=== PATIENT | female | born 1935 | race Asian ===

== ENCOUNTER 2017-08-20 01:18 | Inpatient (IN) | payer MEDICARE, OTHER ==
--- NOTE | 2017-08-20 01:30 | ED Physician Chart ---
ED Chief Complaint/HPI - Patient Information Date Seen:: 08/20/17 Time Seen:: 01:20 Chief Complaint:: Wound Drainage History of Present Illness:: onset x one day of abdominal wound drainage; no report of trauma, H/As, neck pain, C/P, SOB, Abd. pain, A/N/V/D/C, fever, chills, or urinary s/s Historian:: Patient, EMS Review:: Nurse's Note Reviewed, EMS run form Reviewed, Transfer documents Reviewed ED Review of Systems - Review of Systems General/Constitutional: No fever, No chills, No weight loss, No weakness, No diaphoresis, No edema, No loss of appetite Skin: No skin lesions, No rash, No bruising Head: No headache, No light-headedness Eyes: No loss of vision, No pain, No diplopia ENT: No earache, No nasal drainage, No sore throat, No tinnitus Neck: No neck pain, No swelling, No thyromegaly, No stiffness, No mass noted Cardio Vascular: No chest pain, No palpitations, No PND, No orthopnea, No edema Pulmonary: No SOB, No cough, No sputum, No wheezing GI: Nausea, Vomiting, No diarrhea, Pain, Melena, Hematochezia, No constipation, No hematemesis G/U: Dysuria, No frequency, No hematuria Guard Range: No vaginal discharge, No abnormal vaginal bleed, No contraction Musculoskeletal: No bone or joint pain, No back pain, No muscle pain Endocrine: Polyuria, Polydipsia Psychiatric: No prior psych history, No depression, No anxiety, No suicidal ideation, No homicidal ideation, No auditory hallucination, No visual hallucination Hematopoietic: No bruising, No lymphadenopathy Allergic/Immuno: No urticaria, No angioedema Neurological: No syncope, No focal symptoms, Weakness, No paresthesia, No headache, No seizure, No dizziness, Confusion, No vertigo ED Past Medical History - Past Medical History Obtainable: Yes Past Medical History: HTN, DM, CAD, Dyslipidemia, PUD/GERD, Other (Rectal Cancer ; Diverticulitis) Family History: Diabetes Melitus, HTN, Cancer Social History: Non Smoker, No Alcohol, No Drug Use, Single, Care Facility Surgical History: other (Abdominal Surgery) Psychiatricy History: None Medication: Reviewed Family Medical History - Family Member Mother History Unknown: Yes ED Physical Exam - Physical Examination General/Constitutional: Awake, Well-developed, well-nourished, Alert, No distress, GCS 15, Non-toxic appearing, Ambulatory Head: Atraumatic Eyes: Lids, conjuctiva normal, PERRL, EOMI Skin: No rash, No skin lesions, No ecchymosis, Well hydrated, No lymphadenopathy Other Skin comments:: + Cellulitis around Abdominal Wound with drainage ENMT: External ears, nose nl, Nasal exam nl, Lips, teeth, gums nl Neck: Nontender, Full ROM w/o pain, No JVD, No nuchal rigidity, No bruit, No mass, No stridor Respiratory: Nl effort/Exclusion, Clear to Auscultation, No Wheeze/Rhonchi/Rales Cardio Vascular: RRR, No murmur, gallop, rubs, NL S1 S2 GI: No tenderness/rebounding/guarding, No organomegaly, No hernia, Normal BS's, Nondistended, No mass/bruits, No McBurney tenderness : No CVA tenderness Extremities: No tenderness or effusion, Full ROM, normal strength in all extremities, No edema, Normal digits & nails Neuro/Psych: Alert/oriented, DTR's symmetric, Normal sensory exam, Normal motor strength, Judgement/insight normal, Mood normal, Normal gait, No focal deficits Misc: Normal back, No paraspinal tenderness ED Labs/Radiology/EKG Results - Lab Results Comments:: WBC: 12.9; Na+: 130 - Radiology Results Comments:: + Infiltrate - EKG Interpretations Rate & Rhythm: NSR Comments:: non-specific st-t changes ED Septic Shock - . Is Septic Shock (SBP<90, OR Lactate>4 mmol\L) present?: No ED Reassessment (Disposition) - Reassessment Reassessment Condition:: Improved - Diagnosis Diagnosis:: Dx: Wound Infection; Cellulitis; Hyponatremia; Dehydration; Sepsis - Aftercare/Follow up Instructions Aftercare/Follow-Up Instructions:: Counseled pt regarding lab results/diagnosis & need follow up, Counseled pt & family regarding lab results/diagnosis & need follow up - Patient Disposition Discharge/Transfer:: Acute Care w/in this hosp Accepting Physician:: Dr. Zamudio Time Called:: 214 Time Responded:: 02:15 Admitted to:: Telemetry Spoke to:: Dr. Zamudio Admitting Medical Physician:: Dr. Zamudio Condition at Disposition:: Stable, Improved ED Discharge Plan - Patient Disposition Admit/Discharge/Transfer: Acute Care w/in this hosp
[2017-08-20 02:15] LABS: % BASOPHILS 1.7 % (0.0-2.0); % EOSINOPHILS 3.9 % (0.0-5.0); % LYMPHOCYTES 10.4 % (20.0-50.0); % MONOCYTES 7.2 % (2.0-10.0); % NEUTROPHILS 76.8 % (40.0-80.0); HEMATOCRIT 37.8 % (41.0-60); HEMOGLOBIN 12.9 gm/dL (12-16); MEAN CORPUSCULAR HEMOGLOBIN 31.8 pg (27.0-31.0); MEAN CORPUSCULAR HGB CONC 34.2 pg (28.0-36.0); MEAN PLATELET VOLUME 8.2 fl; PLATELET COUNT 305 Th/cmm (150-400); RED BLOOD COUNT 4.06 Mil/cmm (3.80-5.20); RED CELL DISTRIBUTION WIDTH 12.3 % (11.5-20.0)
[2017-08-20 02:17] LABS: WHITE BLOOD COUNT 12.9 Th/cmm (4.8-10.8)
[2017-08-20 02:25] LABS: PROTHROMBIN TIME (TEST) 10.4 SECONDS (9.5-11.5)
[2017-08-20 02:26] LABS: ALB/GLOB RATIO 0.8 (1.0-1.8); ALKALINE PHOSPHATASE 158 U/L (34-104); ANION GAP 11.1 (7.0-16.0); BILIRUBIN,TOTAL 0.7 mg/dL (0.3-1.0); BUN - UREA NITROGEN 12 mg/dL (7-25); CALCIUM SERUM 8.6 mg/dL (8.6-10.3); CARBON DIOXIDE 23.5 mEq/L (21.0-31.0); CHLORIDE 99 mEq/L (98-107); CHOLESTEROL 124 mg/dL (<200); CREATININE - SERUM 0.5 mg/dL (0.6-1.2); GLUCOSE 111 mg/dL (70-105); POTASSIUM SERUM 3.6 mEq/L (3.5-5.1); SGOT 14 U/L (13-39); SGPT/ALT 20 U/L (7-52); SODIUM SERUM 130 mEq/L (136-145); TRIGLYCERIDES 144 mg/dL (<150)
[2017-08-20] MEDS ORDERED: cefTRIAXone 1 GM in Sodium Chloride 0.9% 50 ML IV ONE (03:10)
[2017-08-20 04:32] VITALS: BP 120/62
[2017-08-20] MEDS ORDERED: Magnesium Hydroxide (MOM) 30 mL UDC PO PRN (07:17)
--- NOTE | 2017-08-20 07:40 | Diagnostic Imaging Report ---
CHEST X-RAY: AP view INDICATION: pain COMPARISON: None FINDINGS: Chronic lung changes are seen. There is mild elevation right hemidiaphragm. There is soft tissue prominence of right peritracheal region. No focal consolidation or effusions. Mild cardiomegaly is noted with atherosclerosis. Osseous structures are intact. IMPRESSION: No focal consolidation identified. Mild cardiomegaly with atherosclerosis. Soft tissue prominence of right paratracheal region probably related to body habitus and possible prominent vessels in this region. Lymphadenopathy would be considered less likely. Correlation with old chest x-rays would be helpful comparison. Alternatively short-term follow-up CT of the chest if indicated would provide additional detail and assessment.
--- NOTE | 2017-08-20 08:39 | History and Physical ---
History of Present Illness - HPI Chief Complaint: abdominal pain HPI: This is an 82 year old female who presents to [facility] ER for acute abdominal pain with a previous history of bowel resection at an outside facility. Patient has a history of neoplasm of the rectum. She presents to the ER with serosanginous drainage from her surgical site noted at the [facility]. She was transferred here for further evaluation and treatment. She denies any nausea,vomiting, diarrhea, constipation/fever/chills, or urinary symptoms. Vital Signs: Last Vital Signs Temp 97.3 F 08/20/17 04:00 Pulse 73 08/20/17 04:00 Resp 20 08/20/17 04:00 BP 120/62 08/20/17 04:31 Pulse Ox 94 08/20/17 04:00 Past Medical History Cardiovascular: Report: CAD, HTN, Hyperlipidemia GI: Report: GERD, Peptic Ulcer, Other (Neoplasm of the Rectum.) Musculoskeletal: Report: No Pertinent Hx Rheumatologic: Report: No pertinent Hx Infectious Disease: Report: No Pertinent Hx Renal/: Report: No Pertinent Hx Endocrine: Report: Diabetes Dermatology: Report: No Pertinent Hx (s/p bowel resection) - Past Surgical History Past Surgical History: Other Family Medical History - Family Member Mother History Unknown: Yes Social History Smoke: No Alcohol: None Drugs: None Lives: Alone - Medications Home Medications: Home Medication Medication Instructions Recorded Type Acetaminophen [Tylenol] 650 mg PO BID 08/20/17 History Amlodipine Besylate 5 mg PO DAILY 08/20/17 History Ascorbic Acid [Vitamin C] 500 mg PO DAILY 08/20/17 History Cholecalciferol (Vitamin D3) 800 unit PO DAILY 08/20/17 History [Vitamin D3] Docusate Sodium [Colace] 100 mg PO DAILY 08/20/17 History Folic Acid [Folate*] 1 mg PO DAILY 08/20/17 History Magnesium Hydroxide [Milk of 30 ml PO HS PRN 08/20/17 History Magnesia] Multivitamin with Minerals 1 tab PO DAILY 08/20/17 History [Multivitamins with Minerals] Zinc Sulfate [Zinc Sulfate 111 1 tab PO DAILY 08/20/17 History mg-50 mg] - Allergies Allergies/Adverse Reactions: Allergies Allergy/AdvReac Type Severity Reaction Status Date / Time No Known Allergies Allergy Verified 08/20/17 01:38 Review of Systems - Review of Systems Constitutional: Report: No Significant Eyes: Report: No Significant ENT: Report: No Significant Respiratory: Report: No Significant Cardiovascular: Report: No Significant Gastrointestinal: Report: Abdominal Pain Genitourinary: Report: No Significant Musculoskeletal: Report: No Significant Skin: Report: No Significant Neurological: Report: No Significant Physical Exam - Physical Exam HEENT: Report: Ears Nose Throat within normal limits, Pharnyx within normal limits Neck: Report: Within normal limits, Thyromegaly Cardiovascular Systems: Report: +s1/s2 noted, Regular, Rate and Rhythm Respiratory: Report: Breath Sounds are within normal limits, Clear to Auscultation of lung anthony Skin: Report: Skin Rash noted (presence of cellulitis.) Neuro/Psych: Report: Mood affect is within normal limits - Assessment Assessment: cellulitis abdominal pain s/p bowel resection malignant neoplasm of the rectum diverticulitis type 2 DM HTN history of colon polyps - Plan Plan: wound consult ID consult general surgery consult CBC,CMP tomorrow IV Rocephin
[2017-08-20] MEDS: Multivitamin w/ Minerals Tab PO SCH (08:45)
[2017-08-20] MEDS ORDERED: CHOLECALCIFEROL 800 UNIT PO SCH (09:00)
--- NOTE | 2017-08-20 11:18 | Consultation ---
Consult Note - Consult Note Service Date: 08/20/17 Referring Physician: Juan Wadsworth Consult Note: PHYSICIAN Consultation Note: Date of Admission: 08/20/17 Purpose of Consultation: Abdominal wall cellulitis. Chief Complaint: Patient ANDI ELIZONDO was admitted to location Medical[facility] Unit I with CELLULITIS. History of Present Illness: 82 year female with history of HTN, DM, CAD, Dyslipidemia, PUD/GERD, Colon Cancer; Diverticulitis had partial colectomy in 08/01/2017. Unfortunately, she developed abdominal pain and pus draining from middle part of the surgical incision wound, so she had been admitted for draining abdominal wall wound with abdominal pain of one day. There is no history of fever,, chills, diarrhea. On initial evaluation, her temperature was 98 degree F and WBC Count was 12,900. Rocephin was started and ID consult was called for antibiotic management. Past Medical History: HTN, DM, CAD, Dyslipidemia, PUD/GERD,Colon Cancer; Diverticulitis. Allergies Allergy/AdvReac Type Severity Reaction Status Date / Time No Known Allergies Allergy Verified 08/20/17 01:38 Vital Signs Temp 97.6 F 08/20/17 08:13 Pulse 81 08/20/17 08:45 Resp 17 08/20/17 08:13 BP 119/62 08/20/17 08:45 Pulse Ox 96 08/20/17 08:13 Intake & Output 08/19/17 08/20/17 08/20/17 18:59 06:59 18:59 Weight (lbs) 51.573 kg Home Medication Medication Instructions Recorded Type Acetaminophen [Tylenol] 650 mg PO BID 08/20/17 History Amlodipine Besylate 5 mg PO DAILY 08/20/17 History Ascorbic Acid [Vitamin C] 500 mg PO DAILY 08/20/17 History Cholecalciferol (Vitamin D3) 800 unit PO DAILY 08/20/17 History [Vitamin D3] Docusate Sodium [Colace] 100 mg PO DAILY 08/20/17 History Folic Acid [Folate*] 1 mg PO DAILY 08/20/17 History Magnesium Hydroxide [Milk of 30 ml PO HS PRN 08/20/17 History Magnesia] Multivitamin with Minerals 1 tab PO DAILY 08/20/17 History [Multivitamins with Minerals] Zinc Sulfate [Zinc Sulfate 111 1 tab PO DAILY 08/20/17 History mg-50 mg] Current Medications Generic Name Dose Route Start Last Admin Trade Name Giovani PRN Reason Stop Dose Admin Acetaminophen 650 mg 08/20/17 09:00 08/20/17 08:44 Tylenol PO 10/19/17 08:59 650 mg BID KARLENE Administration Amlodipine Besylate 5 mg 08/20/17 09:00 08/20/17 08:45 Norvasc PO 10/19/17 08:59 5 mg DAILY KARLENE Administration Ascorbic Acid 500 mg 08/20/17 09:00 08/20/17 08:45 Vitamin C PO 10/19/17 08:59 500 mg DAILY KARLENE Administration Docusate Sodium 100 mg 08/20/17 09:00 08/20/17 08:45 Colace PO 10/19/17 08:59 100 mg DAILY KARLENE Administration Folic Acid 1 mg 08/20/17 09:00 08/20/17 08:44 Folate PO 10/19/17 08:59 1 mg DAILY KARLENE Administration Ceftriaxone Sodium 1 gm/ 50 mls @ 100 mls/hr 08/21/17 03:30 Sodium Chloride IV 10/20/17 03:29 Q24HR KARLENE Magnesium Hydroxide 30 ml 08/20/17 07:17 Milk Of Magnesia PO 10/19/17 07:16 HS PRN Constipation Vitamin D 800 iu 08/20/17 09:00 08/20/17 08:44 Vitamin D PO 10/19/17 08:59 800 iu DAILY KARLENE Administration Zinc Sulfate 220 mg 08/20/17 09:00 08/20/17 08:45 Zinc Sulfate PO 10/19/17 08:59 220 mg DAILY KARLENE Administration Review of Systems: A 12 point ROS was reviewed with the pertinent positive and negatives noted in the HPI. Social History Smoking Status Never smoker Drug Use No Alcohol Use No Physical Exam: General: Comfortable not in acute distress. HEENT: Head: Normocephalic, atraumatic. Oral cavity: Moist, pink tongue. Eyes : Pallor is present. No icterus. Pupil PERRLA, EOMI. Neck: Supple, no JVD, no use of X his neck muscles. Cardio: S1 and S2 within normal limits regular rhythm. Respiratory: Vesicular breath sound, no crackles no wheezing. Abdominal: Soft, nontender nondistended, bowel sounds present. Patient has surgical incision wound with stapled intact. There is small open wound at the mid part of incision ( between yousif), draining yellow cream colored pus, There is mild surrounding erythema of abdominal wall wound. Genital/Urinary: Deferred Extremities: No cyanosis, no clubbing, no edema. Neurological: Alert, awake, oriented. There is no focal neurodeficit. Assessment: 1. Wound dehiscence. R/o entero-cutaneous fistula. 2. s/p partial colectomy ( on 08/01/2017). 3. abdominal wall cellulitis. 4. DM2. 5. HTN. 6. H/o Colon CA. Plan: Change antibiotics to zosyn and dc rocpehin. Wound care. Wound cultures, blood cultures. CT a/p. Blood c/s Thank you, Dr Pineda Wadsworth for involving me in taking care of Ms Elizondo. Ty Pastor Devesh N., M.D. [id number]
--- NOTE | 2017-08-20 14:16 | General Progress Note ---
Subjective - Review of Systems Service Date: 08/20/17 Events since last encounter: chart reviewd patient not in room, likely having diagnostic tests Objective - Results Result Diagrams: 08/20/17 01:58 08/20/17 01:58 Recent Labs: Laboratory Last Values WBC 12.9 Th/cmm (4.8-10.8) H 08/20/17 01:58 RBC 4.06 Mil/cmm (3.80-5.20) 08/20/17 01:58 Hgb 12.9 gm/dL (12-16) 08/20/17 01:58 Hct 37.8 % (41.0-60) L 08/20/17 01:58 MCV 93.0 fl (81-100) 08/20/17 01:58 MCH 31.8 pg (27.0-31.0) H 08/20/17 01:58 MCHC Differential 34.2 pg (28.0-36.0) 08/20/17 01:58 RDW 12.3 % (11.5-20.0) 08/20/17 01:58 Plt Count 305 Th/cmm (150-400) 08/20/17 01:58 MPV 8.2 fl 08/20/17 01:58 Neutrophils % 76.8 % (40.0-80.0) 08/20/17 01:58 Lymphocytes % 10.4 % (20.0-50.0) L 08/20/17 01:58 Monocytes % 7.2 % (2.0-10.0) 08/20/17 01:58 Eosinophils % 3.9 % (0.0-5.0) 08/20/17 01:58 Basophils % 1.7 % (0.0-2.0) 08/20/17 01:58 PT 10.4 SECONDS (9.5-11.5) 08/20/17 01:33 INR 1.00 (0.5-1.4) 08/20/17 01:33 PTT (Actin FS) 27.4 SECONDS (26.0-38.0) 08/20/17 01:33 Sodium 130 mEq/L (136-145) L 08/20/17 01:58 Potassium 3.6 mEq/L (3.5-5.1) 08/20/17 01:58 Chloride 99 mEq/L (98-107) 08/20/17 01:58 Carbon Dioxide 23.5 mEq/L (21.0-31.0) 08/20/17 01:58 Anion Gap 11.1 (7.0-16.0) 08/20/17 01:58 BUN 12 mg/dL (7-25) 08/20/17 01:58 Creatinine 0.5 mg/dL (0.6-1.2) L 08/20/17 01:58 Est GFR ( Amer) TNP 08/20/17 01:58 Est GFR (Non-Af Amer) TNP 08/20/17 01:58 BUN/Creatinine Ratio 24.0 08/20/17 01:58 Glucose 111 mg/dL (70-105) H 08/20/17 01:58 Whole Bld Lactic Acid 0.54 mmol/L (0.60-1.99) L 08/20/17 01:58 Calcium 8.6 mg/dL (8.6-10.3) 08/20/17 01:58 Total Bilirubin 0.7 mg/dL (0.3-1.0) 08/20/17 01:58 AST 14 U/L (13-39) 08/20/17 01:58 ALT 20 U/L (7-52) 08/20/17 01:58 Alkaline Phosphatase 158 U/L (34-104) H 08/20/17 01:58 Creatine Kinase 13 U/L (30-223) L 08/20/17 01:58 Troponin I 0.01 ng/mL (0.01-0.05) 08/20/17 01:58 B-Natriuretic Peptide 27.0 pg/mL (5.0-100.0) 08/20/17 01:58 Total Protein 6.4 gm/dL (6.0-8.3) 08/20/17 01:58 Albumin 2.9 gm/dL (3.7-5.3) L 08/20/17 01:58 Globulin 3.5 gm/dL 08/20/17 01:58 Albumin/Globulin Ratio 0.8 (1.0-1.8) L 08/20/17 01:58 Triglycerides 144 mg/dL (<150) 08/20/17 01:58 Cholesterol 124 mg/dL (<200) 08/20/17 01:58 LDL Cholesterol Direct 69 mg/dL (75-193) L 08/20/17 01:58 HDL Cholesterol 24 mg/dL (23-92) 08/20/17 01:58 - Physical Exam Vitals and I&O: Vital Signs Temp 97.6 F 08/20/17 08:13 Pulse 81 08/20/17 08:45 Resp 17 08/20/17 08:13 BP 119/62 08/20/17 08:45 Pulse Ox 96 08/20/17 08:13 Intake & Output 08/19/17 08/20/17 08/20/17 18:59 06:59 18:59 Weight (lbs) 51.573 kg Active Medications: Current Medications Acetaminophen (Tylenol) 650 mg PO BID KARLENE Stop: 10/19/17 08:59 Last Admin: 08/20/17 08:44 Dose: 650 mg Amlodipine Besylate (Norvasc) 5 mg PO DAILY KARLENE Stop: 10/19/17 08:59 Last Admin: 08/20/17 08:45 Dose: 5 mg Ascorbic Acid (Vitamin C) 500 mg PO DAILY KARLENE Stop: 10/19/17 08:59 Last Admin: 08/20/17 08:45 Dose: 500 mg Docusate Sodium (Colace) 100 mg PO DAILY KARLENE Stop: 10/19/17 08:59 Last Admin: 08/20/17 08:45 Dose: 100 mg Folic Acid (Folate) 1 mg PO DAILY KARLENE Stop: 10/19/17 08:59 Last Admin: 08/20/17 08:44 Dose: 1 mg Piperacillin Sod/Tazobactam (Sod 3.375 gm/ Sodium Chloride) 50 mls @ 100 mls/ hr IV Q6HR KARLENE Stop: 10/19/17 17:59 Magnesium Hydroxide (Milk Of Magnesia) 30 ml PO HS PRN PRN Reason: Constipation Stop: 10/19/17 07:16 Vitamin D (Vitamin D) 800 iu PO DAILY KARLENE Stop: 10/19/17 08:59 Last Admin: 08/20/17 08:44 Dose: 800 iu Zinc Sulfate (Zinc Sulfate) 220 mg PO DAILY KARLENE Stop: 10/19/17 08:59 Last Admin: 08/20/17 08:45 Dose: 220 mg
--- NOTE | 2017-08-20 15:22 | Consultation ---
DATE OF CONSULTATION: 08/20/2017 HEMATOLOGY ONCOLOGY CONSULTATION REFERRING PHYSICIAN: Juan Wadsworth D.O. REASON FOR CONSULTATION: Colon cancer. HISTORY OF PRESENT ILLNESS: The patient is an 82-year-old female who presents to Emergency Room with abdominal pain and drainage from surgical wound. She is followed by the ID specialist and started on antibiotics. She was discharged from [facility] to nursing facility and she was transferred from nursing facility to us. PAST MEDICAL HISTORY: Dyslipidemia, hypertension, coronary artery disease, diabetes. PAST SURGICAL HISTORY: Colon resection as above. MEDICATIONS: Tylenol, amlodipine, vitamin D, Colace, folic acid, magnesium. PHYSICAL EXAMINATION: GENERAL: The patient is awake, alert, oriented. No peripheral lymphadenopathy. CHEST: Clear. ABDOMEN: Erythema around the wound. EXTREMITIES: No edema. LABORATORY DATA: White count 12.9, hemoglobin 12.9, platelets 305. PT and PTT normal. Liver functions normal. Mild elevation of the alkaline phosphatase. ASSESSMENT: Colon cancer by history, status post colon resection. The pathology and extensive surgery are unknown. The pathology report will be retrieved from [facility]. Case was discussed with the son at bedside and discussed with the manager case as well. Continue antibiotics per the ID specialist and further recommendations regarding colon cancer. We will follow after review of the pathology. JOB# [id number]
--- NOTE | 2017-08-20 15:33 | Diagnostic Imaging Report ---
CT Chest without IV contrast HISTORY: Mass COMPARISON: Chest x-ray performed the same day and CT abdomen and pelvis performed the same day. Technique: Axial images were obtained from the base of the neck to the upper abdomen without IV contrast. Reconstructions were made. Total DLP 162, CTD I 5.2 Findings: Evaluation of the mediastinum is limited due to lack of IV contrast. Thyroid nodules are noted right greater than left. The largest on the right side measures 1.1 cm. Right posterior thyroid gland calcifications are noted. Mild atherosclerosis is noted. The ascending aorta is ectatic measuring up to 4.1 cm. No evidence of pericardial effusion. The heart size is normal. There is no evidence of mediastinal lymphadenopathy. Mild chronic lung changes are seen with hypoventilatory and atelectatic changes noted. There is faint 3 mm nodular density of the right upper lobe image 4, series 23). No focal consolidation or effusions. The osseous structures demonstrate no acute abnormalities. IMPRESSION: No evidence of mediastinal lymphadenopathy. The prominent soft tissue density seen on recent chest x-ray examination was due to prominent vessels in this region. Ectatic aorta measuring up to 4 cm along the ascending aorta. Mild atherosclerotic vascular disease is also noted. Atelectatic and hypoventilatory lung changes with no focal consolidation or pleural effusions Faint 3 mm right upper lobe nodule opacity, nonspecific, and may be due to old inflammatory process. Consider follow-up surveillance if indicated. Thyroid nodules and right thyroid gland calcification. Ultrasound would provide additional detail and assessment.
--- NOTE | 2017-08-20 15:41 | Diagnostic Imaging Report ---
CT abdomen and pelvis without intravenous contrast Indication: Abdominal pain, previous colectomy Comparison: CT chest performed the same day, Technique: Axial images were obtained from the lung bases to the bilateral proximal femurs without IV contrast. Coronal reconstructions were made. total DLP: 318, CTDI7.3 FINDINGS: Exam is limited due to lack of IV and oral contrast. Atelectatic Changes of the lung bases are noted. No evidence of focal hepatic lesions. Mildly distended gallbladder is noted. There may be gallbladder sludge. No focal splenic or pancreatic lesions. No focal adrenal lesions. Right renal scarring is noted. 3 mm nonobstructive right renal stone is noted. Subcentimeter low-density lesion of the left kidney are noted to small characterize suggestive of cysts. No hydronephrosis. Colonic diverticulosis is noted. Postsurgical changes of the sigmorectal region are noted with rectal wall thickening. Small amount of surrounding free fluid is noted. Areas of scattered large bowel wall thickening are noted. Postsurgical changes of the proximal transverse colon is also seen with evidence of previous partial colectomy this region. Inflammatory changes anterior abdominal wall are noted with small amount of fluid and few pockets of gas. No free abdominal air is identified. Mild atherosclerosis is noted. Mild anasarca is noted. Mild degenerative changes of the spine are noted. There is a 6 mm chronic density seen along the posterior aspect of the L2 vertebral body. IMPRESSION: Postsurgical changes including evidence of prior partial colectomy in the region of the proximal transverse colon and additional postsurgical changes of the rectosigmoid colon. There is inflammatory change and scattered areas of large bowel wall thickening with diverticulosis also noted. Note that the areas of large bowel wall thickening may be due to previous inflammatory process/possible diverticulitis. More prominent bowel wall thickening is seen along the surgical margins of the of the transverse colon and rectum. Neoplastic processes in these regions cannot be excluded. Recommend clinical correlation and follow-up. Additional post surgical changes of anterior abdominal wall with inflammatory changes and a few pockets of gas in this region. There is probable small seroma in this region. Mild inflammatory changes in mesentery small amount of free fluid greatest along the presacral region. Mildly distended gallbladder with possible sludge. Ultrasound further clarify. 2 mm nonobstructive right renal stone. Mild anasarca. 6 mm sclerotic density of the L2 vertebral body possibly a bone island, however, follow-up surveillance is suggested. Left renal low density lesions too small to characterize but suggestive of cysts.
[2017-08-21] MEDS ORDERED: cefTRIAXone 1 GM in Sodium Chloride 0.9% 50 ML IV SCH (03:30)
[2017-08-21 05:42] LABS: % BASOPHILS 0.1 % (0.0-2.0); % EOSINOPHILS 8.8 % (0.0-5.0); % MONOCYTES 9.2 % (2.0-10.0); % NEUTROPHILS 67.9 % (40.0-80.0); HEMATOCRIT 37.7 % (41.0-60); HEMOGLOBIN 12.7 gm/dL (12-16); MEAN CELL VOLUME 92.3 fl (81-100); MEAN CORPUSCULAR HEMOGLOBIN 31.2 pg (27.0-31.0); MEAN CORPUSCULAR HGB CONC 33.8 pg (28.0-36.0); MEAN PLATELET VOLUME 8.4 fl; NEUTROPHILE ABSOLUTE 4.8 Th/cmm (1.8-8.0); PLATELET COUNT 299 Th/cmm (150-400); RED BLOOD COUNT 4.08 Mil/cmm (3.80-5.20); RED CELL DISTRIBUTION WIDTH 12.4 % (11.5-20.0)
[2017-08-21 05:47] LABS: WHITE BLOOD COUNT 7.1 Th/cmm (4.8-10.8)
[2017-08-21 06:00] LABS: ANION GAP 10.3 (7.0-16.0); BUN - UREA NITROGEN 12 mg/dL (7-25); CALCIUM SERUM 8.4 mg/dL (8.6-10.3); CARBON DIOXIDE 25.3 mEq/L (21.0-31.0); CHLORIDE 100 mEq/L (98-107); CREATININE - SERUM 0.5 mg/dL (0.6-1.2); GLUCOSE 97 mg/dL (70-105); POTASSIUM SERUM 3.6 mEq/L (3.5-5.1); SODIUM SERUM 132 mEq/L (136-145)
--- NOTE | 2017-08-21 08:31 | General Progress Note ---
Subjective - Review of Systems Service Date: 08/21/17 Subjective: Patient was seen and evaluated. Awake, alert, oriented. no acute distress. Patient eating breakfast this morning. Objective - Results Result Diagrams: 08/21/17 04:57 08/21/17 04:57 Recent Labs: Laboratory Last Values WBC 7.1 Th/cmm (4.8-10.8) D 08/21/17 04:57 RBC 4.08 Mil/cmm (3.80-5.20) 08/21/17 04:57 Hgb 12.7 gm/dL (12-16) 08/21/17 04:57 Hct 37.7 % (41.0-60) L 08/21/17 04:57 MCV 92.3 fl (81-100) 08/21/17 04:57 MCH 31.2 pg (27.0-31.0) H 08/21/17 04:57 MCHC Differential 33.8 pg (28.0-36.0) 08/21/17 04:57 RDW 12.4 % (11.5-20.0) 08/21/17 04:57 Plt Count 299 Th/cmm (150-400) 08/21/17 04:57 MPV 8.4 fl 08/21/17 04:57 Neutrophils % 67.9 % (40.0-80.0) 08/21/17 04:57 Lymphocytes % 14.0 % (20.0-50.0) L 08/21/17 04:57 Monocytes % 9.2 % (2.0-10.0) 08/21/17 04:57 Eosinophils % 8.8 % (0.0-5.0) H 08/21/17 04:57 Basophils % 0.1 % (0.0-2.0) 08/21/17 04:57 PT 10.4 SECONDS (9.5-11.5) 08/20/17 01:33 INR 1.00 (0.5-1.4) 08/20/17 01:33 PTT (Actin FS) 27.4 SECONDS (26.0-38.0) 08/20/17 01:33 Sodium 132 mEq/L (136-145) L 08/21/17 04:57 Potassium 3.6 mEq/L (3.5-5.1) 08/21/17 04:57 Chloride 100 mEq/L (98-107) 08/21/17 04:57 Carbon Dioxide 25.3 mEq/L (21.0-31.0) 08/21/17 04:57 Anion Gap 10.3 (7.0-16.0) 08/21/17 04:57 BUN 12 mg/dL (7-25) 08/21/17 04:57 Creatinine 0.5 mg/dL (0.6-1.2) L 08/21/17 04:57 Est GFR ( Amer) TNP 08/21/17 04:57 Est GFR (Non-Af Amer) TNP 08/21/17 04:57 BUN/Creatinine Ratio 24.0 08/21/17 04:57 Glucose 97 mg/dL (70-105) 08/21/17 04:57 Whole Bld Lactic Acid 0.54 mmol/L (0.60-1.99) L 08/20/17 01:58 Calcium 8.4 mg/dL (8.6-10.3) L 08/21/17 04:57 Total Bilirubin 0.7 mg/dL (0.3-1.0) 08/20/17 01:58 AST 14 U/L (13-39) 08/20/17 01:58 ALT 20 U/L (7-52) 08/20/17 01:58 Alkaline Phosphatase 158 U/L (34-104) H 08/20/17 01:58 Creatine Kinase 13 U/L (30-223) L 08/20/17 01:58 Troponin I 0.01 ng/mL (0.01-0.05) 08/20/17 01:58 B-Natriuretic Peptide 27.0 pg/mL (5.0-100.0) 08/20/17 01:58 Total Protein 6.4 gm/dL (6.0-8.3) 08/20/17 01:58 Albumin 2.9 gm/dL (3.7-5.3) L 08/20/17 01:58 Globulin 3.5 gm/dL 08/20/17 01:58 Albumin/Globulin Ratio 0.8 (1.0-1.8) L 08/20/17 01:58 Triglycerides 144 mg/dL (<150) 08/20/17 01:58 Cholesterol 124 mg/dL (<200) 08/20/17 01:58 LDL Cholesterol Direct 69 mg/dL (75-193) L 08/20/17 01:58 HDL Cholesterol 24 mg/dL (23-92) 08/20/17 01:58 - Physical Exam Vitals and I&O: Vital Signs Temp 97.7 F 08/21/17 04:00 Pulse 82 08/21/17 04:00 Resp 20 08/21/17 04:00 BP 136/67 08/21/17 04:00 Pulse Ox 95 08/21/17 04:00 Intake & Output 08/20/17 08/21/17 08/21/17 18:59 06:59 18:59 Intake Total 600 220 Balance 600 220 Weight (lbs) 51.256 kg 52.163 kg Intake: Intake, IV Amount 50 100 Piperacillin Sodium/ 50 100 Tazobact 3.375 gm In Sodium Chloride 0.9% 50 ml @ 100 mls/hr IV Q6HR [facility] Rx#:[id number] Oral 550 120 Other: # Voids 3 2 # Bowel Movements 2 Active Medications: Current Medications Acetaminophen (Tylenol) 650 mg PO BID [facility] Stop: 10/19/17 08:59 Last Admin: 08/20/17 16:27 Dose: 650 mg Amlodipine Besylate (Norvasc) 5 mg PO DAILY [facility] Stop: 10/19/17 08:59 Last Admin: 08/20/17 08:45 Dose: 5 mg Ascorbic Acid (Vitamin C) 500 mg PO DAILY [facility] Stop: 10/19/17 08:59 Last Admin: 08/20/17 08:45 Dose: 500 mg Docusate Sodium (Colace) 100 mg PO DAILY [facility] Stop: 10/19/17 08:59 Last Admin: 08/20/17 08:45 Dose: 100 mg Folic Acid (Folate) 1 mg PO DAILY [facility] Stop: 10/19/17 08:59 Last Admin: 08/20/17 08:44 Dose: 1 mg Piperacillin Sod/Tazobactam (Sod 3.375 gm/ Sodium Chloride) 50 mls @ 100 mls/ hr IV Q6HR [facility] Stop: 10/19/17 17:59 Last Infusion: 08/21/17 06:24 Dose: Infused Magnesium Hydroxide (Milk Of Magnesia) 30 ml PO HS PRN PRN Reason: Constipation Stop: 10/19/17 07:16 Vitamin D (Vitamin D) 800 iu PO DAILY [facility] Stop: 10/19/17 08:59 Last Admin: 08/20/17 08:44 Dose: 800 iu Zinc Sulfate (Zinc Sulfate) 220 mg PO DAILY [facility] Stop: 10/19/17 08:59 Last Admin: 08/20/17 08:45 Dose: 220 mg General: Alert, Oriented x3, No acute distress HEENT: Atraumatic, PERRLA, EOMI Neck: Supple Cardiovascular: Regular rate, Normal S1, Normal S2 Abdomen: Bowel sounds Extremities: no Clubbing, no Cyanosis, no Edema Skin: Other (presence of drainage to the surgical site. ) Assessment/Plan - Assessment Assessment: cellulitis abdominal pain s/p bowel resection malignant neoplasm of the rectum diverticulitis type 2 DM HTN history of colon polyps distended gallbladder with possible bile sludge - Plan Plan: wound consult ID consult Hem/onc consult general surgery consult CBC,CMP tomorrow IV Rocephin GI consult
[2017-08-21] MEDS: Multivitamin w/ Minerals Tab PO SCH (09:36)
--- NOTE | 2017-08-21 11:47 | Infectious Disease Prog Note ---
Infectious Disease Subjective - Review of Systems Service Date: 08/21/17 Subjective: There is no new change, there is no fever. Infectious Disease Objective - Results Result Diagrams: 08/21/17 04:57 08/21/17 04:57 Recent Labs: Laboratory Last Values WBC 7.1 Th/cmm (4.8-10.8) D 08/21/17 04:57 RBC 4.08 Mil/cmm (3.80-5.20) 08/21/17 04:57 Hgb 12.7 gm/dL (12-16) 08/21/17 04:57 Hct 37.7 % (41.0-60) L 08/21/17 04:57 MCV 92.3 fl (81-100) 08/21/17 04:57 MCH 31.2 pg (27.0-31.0) H 08/21/17 04:57 MCHC Differential 33.8 pg (28.0-36.0) 08/21/17 04:57 RDW 12.4 % (11.5-20.0) 08/21/17 04:57 Plt Count 299 Th/cmm (150-400) 08/21/17 04:57 MPV 8.4 fl 08/21/17 04:57 Neutrophils % 67.9 % (40.0-80.0) 08/21/17 04:57 Lymphocytes % 14.0 % (20.0-50.0) L 08/21/17 04:57 Monocytes % 9.2 % (2.0-10.0) 08/21/17 04:57 Eosinophils % 8.8 % (0.0-5.0) H 08/21/17 04:57 Basophils % 0.1 % (0.0-2.0) 08/21/17 04:57 PT 10.4 SECONDS (9.5-11.5) 08/20/17 01:33 INR 1.00 (0.5-1.4) 08/20/17 01:33 PTT (Actin FS) 27.4 SECONDS (26.0-38.0) 08/20/17 01:33 Sodium 132 mEq/L (136-145) L 08/21/17 04:57 Potassium 3.6 mEq/L (3.5-5.1) 08/21/17 04:57 Chloride 100 mEq/L (98-107) 08/21/17 04:57 Carbon Dioxide 25.3 mEq/L (21.0-31.0) 08/21/17 04:57 Anion Gap 10.3 (7.0-16.0) 08/21/17 04:57 BUN 12 mg/dL (7-25) 08/21/17 04:57 Creatinine 0.5 mg/dL (0.6-1.2) L 08/21/17 04:57 Est GFR ( Amer) TNP 08/21/17 04:57 Est GFR (Non-Af Amer) TNP 08/21/17 04:57 BUN/Creatinine Ratio 24.0 08/21/17 04:57 Glucose 97 mg/dL (70-105) 08/21/17 04:57 Whole Bld Lactic Acid 0.54 mmol/L (0.60-1.99) L 08/20/17 01:58 Calcium 8.4 mg/dL (8.6-10.3) L 08/21/17 04:57 Total Bilirubin 0.7 mg/dL (0.3-1.0) 08/20/17 01:58 AST 14 U/L (13-39) 08/20/17 01:58 ALT 20 U/L (7-52) 08/20/17 01:58 Alkaline Phosphatase 158 U/L (34-104) H 08/20/17 01:58 Creatine Kinase 13 U/L (30-223) L 08/20/17 01:58 Troponin I 0.01 ng/mL (0.01-0.05) 08/20/17 01:58 B-Natriuretic Peptide 27.0 pg/mL (5.0-100.0) 08/20/17 01:58 Total Protein 6.4 gm/dL (6.0-8.3) 08/20/17 01:58 Albumin 2.9 gm/dL (3.7-5.3) L 08/20/17 01:58 Globulin 3.5 gm/dL 08/20/17 01:58 Albumin/Globulin Ratio 0.8 (1.0-1.8) L 08/20/17 01:58 Triglycerides 144 mg/dL (<150) 08/20/17 01:58 Cholesterol 124 mg/dL (<200) 08/20/17 01:58 LDL Cholesterol Direct 69 mg/dL (75-193) L 08/20/17 01:58 HDL Cholesterol 24 mg/dL (23-92) 08/20/17 01:58 - Physical Exam Vitals and I&O: Vital Signs Temp 97.7 F 08/21/17 04:00 Pulse 78 08/21/17 09:37 Resp 20 08/21/17 04:00 BP 123/55 08/21/17 09:37 Pulse Ox 95 08/21/17 04:00 Intake & Output 08/20/17 08/21/17 08/21/17 18:59 06:59 18:59 Intake Total 600 220 Balance 600 220 Weight (lbs) 51.256 kg 52.163 kg Intake: Intake, IV Amount 50 100 Piperacillin Sodium/ 50 100 Tazobact 3.375 gm In Sodium Chloride 0.9% 50 ml @ 100 mls/hr IV Q6HR [facility] Rx#:[id number] Oral 550 120 Other: # Voids 3 2 # Bowel Movements 2 Active Medications: Current Medications Acetaminophen (Tylenol) 650 mg PO BID [facility] Stop: 10/19/17 08:59 Last Admin: 08/21/17 09:38 Dose: 650 mg Amlodipine Besylate (Norvasc) 5 mg PO DAILY [facility] Stop: 10/19/17 08:59 Last Admin: 08/21/17 09:37 Dose: 5 mg Ascorbic Acid (Vitamin C) 500 mg PO DAILY [facility] Stop: 10/19/17 08:59 Last Admin: 08/21/17 09:36 Dose: 500 mg Docusate Sodium (Colace) 100 mg PO DAILY [facility] Stop: 10/19/17 08:59 Last Admin: 08/21/17 09:36 Dose: 100 mg Folic Acid (Folate) 1 mg PO DAILY [facility] Stop: 10/19/17 08:59 Last Admin: 08/21/17 09:38 Dose: 1 mg Piperacillin Sod/Tazobactam (Sod 3.375 gm/ Sodium Chloride) 50 mls @ 100 mls/ hr IV Q6HR [facility] Stop: 10/19/17 17:59 Last Infusion: 08/21/17 06:24 Dose: Infused Magnesium Hydroxide (Milk Of Magnesia) 30 ml PO HS PRN PRN Reason: Constipation Stop: 10/19/17 07:16 Ondansetron HCl (Zofran) 4 mg IV Q6H PRN PRN Reason: Nausea / Vomiting Stop: 10/20/17 10:26 Vitamin D (Vitamin D) 800 iu PO DAILY [facility] Stop: 10/19/17 08:59 Last Admin: 08/21/17 09:36 Dose: 800 iu Zinc Sulfate (Zinc Sulfate) 220 mg PO DAILY [facility] Stop: 10/19/17 08:59 Last Admin: 08/21/17 09:36 Dose: 220 mg General: no acute distress, well developed, well nourished HEENT: atraumatic, normocephalic, PERRLA, EOMI Neck: supple Cardiovascular: S1S2, regular Lungs: clear to auscultation bilaterally, clear to percussion Abdomen: soft, bowel sounds, other (Patient has surgical incision wound with stapled intact. There is small open wound at the mid part of incision ( between yousif), draining yellow cream colored pus, There is mild surrounding erythema of abdominal wall wound.), no tender, no distended Extremities: no cyanosis, no clubbing, no edema Neurological: awake, alert, oriented Skin: intact Infectious Disease Assmt/Plan - Assessment Assessment: 1. Wound dehiscence. R/o entero-cutaneous fistula. 2. s/p partial colectomy ( on 08/01/2017). 3. abdominal wall cellulitis. 4. DM2. 5. HTN. 6. H/o Colon CA. - Plan Plan: Continue Zosyn. Wound care.
--- NOTE | 2017-08-21 11:52 | Infectious Disease Prog Note ---
Infectious Disease Subjective - Review of Systems Service Date: 08/21/17 Subjective: There is no new change, there is no fever. Infectious Disease Objective - Results Result Diagrams: 08/21/17 04:57 08/21/17 04:57 Recent Labs: Laboratory Last Values WBC 7.1 Th/cmm (4.8-10.8) D 08/21/17 04:57 RBC 4.08 Mil/cmm (3.80-5.20) 08/21/17 04:57 Hgb 12.7 gm/dL (12-16) 08/21/17 04:57 Hct 37.7 % (41.0-60) L 08/21/17 04:57 MCV 92.3 fl (81-100) 08/21/17 04:57 MCH 31.2 pg (27.0-31.0) H 08/21/17 04:57 MCHC Differential 33.8 pg (28.0-36.0) 08/21/17 04:57 RDW 12.4 % (11.5-20.0) 08/21/17 04:57 Plt Count 299 Th/cmm (150-400) 08/21/17 04:57 MPV 8.4 fl 08/21/17 04:57 Neutrophils % 67.9 % (40.0-80.0) 08/21/17 04:57 Lymphocytes % 14.0 % (20.0-50.0) L 08/21/17 04:57 Monocytes % 9.2 % (2.0-10.0) 08/21/17 04:57 Eosinophils % 8.8 % (0.0-5.0) H 08/21/17 04:57 Basophils % 0.1 % (0.0-2.0) 08/21/17 04:57 PT 10.4 SECONDS (9.5-11.5) 08/20/17 01:33 INR 1.00 (0.5-1.4) 08/20/17 01:33 PTT (Actin FS) 27.4 SECONDS (26.0-38.0) 08/20/17 01:33 Sodium 132 mEq/L (136-145) L 08/21/17 04:57 Potassium 3.6 mEq/L (3.5-5.1) 08/21/17 04:57 Chloride 100 mEq/L (98-107) 08/21/17 04:57 Carbon Dioxide 25.3 mEq/L (21.0-31.0) 08/21/17 04:57 Anion Gap 10.3 (7.0-16.0) 08/21/17 04:57 BUN 12 mg/dL (7-25) 08/21/17 04:57 Creatinine 0.5 mg/dL (0.6-1.2) L 08/21/17 04:57 Est GFR ( Amer) TNP 08/21/17 04:57 Est GFR (Non-Af Amer) TNP 08/21/17 04:57 BUN/Creatinine Ratio 24.0 08/21/17 04:57 Glucose 97 mg/dL (70-105) 08/21/17 04:57 Whole Bld Lactic Acid 0.54 mmol/L (0.60-1.99) L 08/20/17 01:58 Calcium 8.4 mg/dL (8.6-10.3) L 08/21/17 04:57 Total Bilirubin 0.7 mg/dL (0.3-1.0) 08/20/17 01:58 AST 14 U/L (13-39) 08/20/17 01:58 ALT 20 U/L (7-52) 08/20/17 01:58 Alkaline Phosphatase 158 U/L (34-104) H 08/20/17 01:58 Creatine Kinase 13 U/L (30-223) L 08/20/17 01:58 Troponin I 0.01 ng/mL (0.01-0.05) 08/20/17 01:58 B-Natriuretic Peptide 27.0 pg/mL (5.0-100.0) 08/20/17 01:58 Total Protein 6.4 gm/dL (6.0-8.3) 08/20/17 01:58 Albumin 2.9 gm/dL (3.7-5.3) L 08/20/17 01:58 Globulin 3.5 gm/dL 08/20/17 01:58 Albumin/Globulin Ratio 0.8 (1.0-1.8) L 08/20/17 01:58 Triglycerides 144 mg/dL (<150) 08/20/17 01:58 Cholesterol 124 mg/dL (<200) 08/20/17 01:58 LDL Cholesterol Direct 69 mg/dL (75-193) L 08/20/17 01:58 HDL Cholesterol 24 mg/dL (23-92) 08/20/17 01:58 - Physical Exam Vitals and I&O: Vital Signs Temp 97.7 F 08/21/17 04:00 Pulse 78 08/21/17 09:37 Resp 20 08/21/17 04:00 BP 123/55 08/21/17 09:37 Pulse Ox 95 08/21/17 04:00 Intake & Output 08/20/17 08/21/17 08/21/17 18:59 06:59 18:59 Intake Total 600 220 Balance 600 220 Weight (lbs) 51.256 kg 52.163 kg Intake: Intake, IV Amount 50 100 Piperacillin Sodium/ 50 100 Tazobact 3.375 gm In Sodium Chloride 0.9% 50 ml @ 100 mls/hr IV Q6HR [facility] Rx#:[id number] Oral 550 120 Other: # Voids 3 2 # Bowel Movements 2 Active Medications: Current Medications Acetaminophen (Tylenol) 650 mg PO BID [facility] Stop: 10/19/17 08:59 Last Admin: 08/21/17 09:38 Dose: 650 mg Amlodipine Besylate (Norvasc) 5 mg PO DAILY [facility] Stop: 10/19/17 08:59 Last Admin: 08/21/17 09:37 Dose: 5 mg Ascorbic Acid (Vitamin C) 500 mg PO DAILY [facility] Stop: 10/19/17 08:59 Last Admin: 08/21/17 09:36 Dose: 500 mg Docusate Sodium (Colace) 100 mg PO DAILY [facility] Stop: 10/19/17 08:59 Last Admin: 08/21/17 09:36 Dose: 100 mg Folic Acid (Folate) 1 mg PO DAILY [facility] Stop: 10/19/17 08:59 Last Admin: 08/21/17 09:38 Dose: 1 mg Piperacillin Sod/Tazobactam (Sod 3.375 gm/ Sodium Chloride) 50 mls @ 100 mls/ hr IV Q6HR [facility] Stop: 10/19/17 17:59 Last Infusion: 08/21/17 06:24 Dose: Infused Magnesium Hydroxide (Milk Of Magnesia) 30 ml PO HS PRN PRN Reason: Constipation Stop: 10/19/17 07:16 Ondansetron HCl (Zofran) 4 mg IV Q6H PRN PRN Reason: Nausea / Vomiting Stop: 10/20/17 10:26 Pantoprazole Sodium (Protonix) 40 mg IVP DAILY [facility] Stop: 10/20/17 11:59 Vitamin D (Vitamin D) 800 iu PO DAILY [facility] Stop: 10/19/17 08:59 Last Admin: 08/21/17 09:36 Dose: 800 iu Zinc Sulfate (Zinc Sulfate) 220 mg PO DAILY [facility] Stop: 10/19/17 08:59 Last Admin: 08/21/17 09:36 Dose: 220 mg General: no acute distress, well developed, well nourished HEENT: atraumatic, normocephalic, PERRLA Neck: supple Cardiovascular: S1S2, regular Lungs: clear to auscultation bilaterally, clear to percussion Abdomen: soft, bowel sounds, other (urgical incision wound with yousif intact. There is small open wound at the mid part of incision ( between yousif), draining yellow cream colored pus, There is mild surrounding erythema of abdominal wall wound.), no tender, no distended Extremities: no cyanosis, no clubbing, no edema Neurological: awake, alert, oriented, CN 2-12 intact Infectious Disease Assmt/Plan - Assessment Assessment: 1. Wound dehiscence. R/o entero-cutaneous fistula. 2. s/p partial colectomy ( on 08/01/2017). 3. abdominal wall cellulitis. 4. DM2. 5. HTN. 6. H/o Colon CA. - Plan Plan: Continue Zosyn. Wound care.
[2017-08-21] MEDS ORDERED: Probiotic Screen MC PRN (13:56)
--- NOTE | 2017-08-21 15:36 | General Progress Note ---
Subjective - Review of Systems Service Date: 08/21/17 Objective - Results Result Diagrams: 08/21/17 04:57 08/21/17 04:57 Recent Labs: Laboratory Last Values WBC 7.1 Th/cmm (4.8-10.8) D 08/21/17 04:57 RBC 4.08 Mil/cmm (3.80-5.20) 08/21/17 04:57 Hgb 12.7 gm/dL (12-16) 08/21/17 04:57 Hct 37.7 % (41.0-60) L 08/21/17 04:57 MCV 92.3 fl (81-100) 08/21/17 04:57 MCH 31.2 pg (27.0-31.0) H 08/21/17 04:57 MCHC Differential 33.8 pg (28.0-36.0) 08/21/17 04:57 RDW 12.4 % (11.5-20.0) 08/21/17 04:57 Plt Count 299 Th/cmm (150-400) 08/21/17 04:57 MPV 8.4 fl 08/21/17 04:57 Neutrophils % 67.9 % (40.0-80.0) 08/21/17 04:57 Lymphocytes % 14.0 % (20.0-50.0) L 08/21/17 04:57 Monocytes % 9.2 % (2.0-10.0) 08/21/17 04:57 Eosinophils % 8.8 % (0.0-5.0) H 08/21/17 04:57 Basophils % 0.1 % (0.0-2.0) 08/21/17 04:57 PT 10.4 SECONDS (9.5-11.5) 08/20/17 01:33 INR 1.00 (0.5-1.4) 08/20/17 01:33 PTT (Actin FS) 27.4 SECONDS (26.0-38.0) 08/20/17 01:33 Sodium 132 mEq/L (136-145) L 08/21/17 04:57 Potassium 3.6 mEq/L (3.5-5.1) 08/21/17 04:57 Chloride 100 mEq/L (98-107) 08/21/17 04:57 Carbon Dioxide 25.3 mEq/L (21.0-31.0) 08/21/17 04:57 Anion Gap 10.3 (7.0-16.0) 08/21/17 04:57 BUN 12 mg/dL (7-25) 08/21/17 04:57 Creatinine 0.5 mg/dL (0.6-1.2) L 08/21/17 04:57 Est GFR ( Amer) TNP 08/21/17 04:57 Est GFR (Non-Af Amer) TNP 08/21/17 04:57 BUN/Creatinine Ratio 24.0 08/21/17 04:57 Glucose 97 mg/dL (70-105) 08/21/17 04:57 Whole Bld Lactic Acid 0.54 mmol/L (0.60-1.99) L 08/20/17 01:58 Calcium 8.4 mg/dL (8.6-10.3) L 08/21/17 04:57 Total Bilirubin 0.7 mg/dL (0.3-1.0) 08/20/17 01:58 AST 14 U/L (13-39) 08/20/17 01:58 ALT 20 U/L (7-52) 08/20/17 01:58 Alkaline Phosphatase 158 U/L (34-104) H 08/20/17 01:58 Creatine Kinase 13 U/L (30-223) L 08/20/17 01:58 Troponin I 0.01 ng/mL (0.01-0.05) 08/20/17 01:58 B-Natriuretic Peptide 27.0 pg/mL (5.0-100.0) 08/20/17 01:58 Total Protein 6.4 gm/dL (6.0-8.3) 08/20/17 01:58 Albumin 2.9 gm/dL (3.7-5.3) L 08/20/17 01:58 Globulin 3.5 gm/dL 08/20/17 01:58 Albumin/Globulin Ratio 0.8 (1.0-1.8) L 08/20/17 01:58 Triglycerides 144 mg/dL (<150) 08/20/17 01:58 Cholesterol 124 mg/dL (<200) 08/20/17 01:58 LDL Cholesterol Direct 69 mg/dL (75-193) L 08/20/17 01:58 HDL Cholesterol 24 mg/dL (23-92) 08/20/17 01:58 - Physical Exam Vitals and I&O: Vital Signs Temp 97.7 F 08/21/17 04:00 Pulse 78 08/21/17 09:37 Resp 20 08/21/17 04:00 BP 123/55 08/21/17 09:37 Pulse Ox 95 08/21/17 04:00 Intake & Output 08/20/17 08/21/17 08/21/17 18:59 06:59 18:59 Intake Total 600 220 Balance 600 220 Weight (lbs) 51.256 kg 52.163 kg Intake: Intake, IV Amount 50 100 Piperacillin Sodium/ 50 100 Tazobact 3.375 gm In Sodium Chloride 0.9% 50 ml @ 100 mls/hr IV Q6HR [facility] Rx#:[id number] Oral 550 120 Other: # Voids 3 2 # Bowel Movements 2 Active Medications: Current Medications Acetaminophen (Tylenol) 650 mg PO BID [facility] Stop: 10/19/17 08:59 Last Admin: 08/21/17 09:38 Dose: 650 mg Amlodipine Besylate (Norvasc) 5 mg PO DAILY [facility] Stop: 10/19/17 08:59 Last Admin: 08/21/17 09:37 Dose: 5 mg Ascorbic Acid (Vitamin C) 500 mg PO DAILY [facility] Stop: 10/19/17 08:59 Last Admin: 08/21/17 09:36 Dose: 500 mg Docusate Sodium (Colace) 100 mg PO DAILY [facility] Stop: 10/19/17 08:59 Last Admin: 08/21/17 09:36 Dose: 100 mg Folic Acid (Folate) 1 mg PO DAILY [facility] Stop: 10/19/17 08:59 Last Admin: 08/21/17 09:38 Dose: 1 mg Piperacillin Sod/Tazobactam (Sod 3.375 gm/ Sodium Chloride) 50 mls @ 100 mls/ hr IV Q6HR [facility] Stop: 10/19/17 17:59 Last Admin: 08/21/17 13:13 Dose: 100 mls/hr Lactobacillus Rhamnosus (Culturelle) 1 each PO DAILY [facility] Stop: 10/21/17 08:59 Magnesium Hydroxide (Milk Of Magnesia) 30 ml PO HS PRN PRN Reason: Constipation Stop: 10/19/17 07:16 Miscellaneous (Probiotic Screen) 1 ea [facility] PRN PRN PRN Reason: PROTOCOL Stop: 10/20/17 13:55 Ondansetron HCl (Zofran) 4 mg IV Q6H PRN PRN Reason: Nausea / Vomiting Stop: 10/20/17 10:26 Last Admin: 08/21/17 13:03 Dose: 4 mg Pantoprazole Sodium (Protonix) 40 mg IVP DAILY [facility] Stop: 10/20/17 11:59 Last Admin: 08/21/17 13:12 Dose: 40 mg Vitamin D (Vitamin D) 800 iu PO DAILY [facility] Stop: 10/19/17 08:59 Last Admin: 08/21/17 09:36 Dose: 800 iu Zinc Sulfate (Zinc Sulfate) 220 mg PO DAILY [facility] Stop: 10/19/17 08:59 Last Admin: 08/21/17 09:36 Dose: 220 mg General: Alert, Oriented x3, No acute distress HEENT: Atraumatic, PERRLA, EOMI Neck: Supple Cardiovascular: Regular rate, Normal S1, Normal S2 Abdomen: Bowel sounds Extremities: no Clubbing, no Cyanosis, no Edema Skin: Other (presence of drainage to the surgical site. ) Assessment/Plan - Assessment Assessment: * Rectal cancer s/p low anterior resection * abd wound infection. * pathology shows no residual malignancy Start lovenx proph
[2017-08-21] MEDS: Enoxaparin 40 mg/0.4 mL 0.4mL Syr SUBQ SCH (17:39)
[2017-08-22 05:52] LABS: % BASOPHILS 0.8 % (0.0-2.0); % EOSINOPHILS 11.2 % (0.0-5.0); % LYMPHOCYTES 17.6 % (20.0-50.0); % MONOCYTES 9.3 % (2.0-10.0); % NEUTROPHILS 61.1 % (40.0-80.0); HEMOGLOBIN 13.1 gm/dL (12-16); MEAN CORPUSCULAR HEMOGLOBIN 31.5 pg (27.0-31.0); MEAN CORPUSCULAR HGB CONC 33.5 pg (28.0-36.0); MEAN PLATELET VOLUME 8.1 fl; NEUTROPHILE ABSOLUTE 3.8 Th/cmm (1.8-8.0); PLATELET COUNT 304 Th/cmm (150-400); RED BLOOD COUNT 4.15 Mil/cmm (3.80-5.20); RED CELL DISTRIBUTION WIDTH 12.6 % (11.5-20.0); WHITE BLOOD COUNT 6.2 Th/cmm (4.8-10.8)
[2017-08-22 06:08] LABS: ALB/GLOB RATIO 0.9 (1.0-1.8); ALKALINE PHOSPHATASE 121 U/L (34-104); ANION GAP 10.3 (7.0-16.0); BILIRUBIN,TOTAL 0.6 mg/dL (0.3-1.0); BUN - UREA NITROGEN 11 mg/dL (7-25); BUN/CREATININE RATIO 15.7; CALCIUM SERUM 8.8 mg/dL (8.6-10.3); CARBON DIOXIDE 25.5 mEq/L (21.0-31.0); CHLORIDE 103 mEq/L (98-107); CREATININE - SERUM 0.7 mg/dL (0.6-1.2); GLUCOSE 84 mg/dL (70-105); LIPASE 43 U/L (11-82); POTASSIUM SERUM 3.8 mEq/L (3.5-5.1); SGOT 19 U/L (13-39); SGPT/ALT 18 U/L (7-52); SODIUM SERUM 135 mEq/L (136-145)
--- NOTE | 2017-08-22 08:01 | General Progress Note ---
Subjective - Review of Systems Service Date: 08/22/17 Subjective: Patient was seen and evaluated. Denies abdominal pain, nausea, vomiting. For abdominal US today. Awake, alert, oriented. no acute distress. Patient currently NPO for US. Objective - Results Result Diagrams: 08/22/17 05:28 08/22/17 05:28 Recent Labs: Laboratory Last Values WBC 6.2 Th/cmm (4.8-10.8) 08/22/17 05:28 RBC 4.15 Mil/cmm (3.80-5.20) 08/22/17 05:28 Hgb 13.1 gm/dL (12-16) 08/22/17 05:28 Hct 39.0 % (41.0-60) L 08/22/17 05:28 MCV 94.0 fl (81-100) 08/22/17 05:28 MCH 31.5 pg (27.0-31.0) H 08/22/17 05:28 MCHC Differential 33.5 pg (28.0-36.0) 08/22/17 05:28 RDW 12.6 % (11.5-20.0) 08/22/17 05:28 Plt Count 304 Th/cmm (150-400) 08/22/17 05:28 MPV 8.1 fl 08/22/17 05:28 Neutrophils % 61.1 % (40.0-80.0) 08/22/17 05:28 Lymphocytes % 17.6 % (20.0-50.0) L 08/22/17 05:28 Monocytes % 9.3 % (2.0-10.0) 08/22/17 05:28 Eosinophils % 11.2 % (0.0-5.0) H 08/22/17 05:28 Basophils % 0.8 % (0.0-2.0) 08/22/17 05:28 PT 10.4 SECONDS (9.5-11.5) 08/20/17 01:33 INR 1.00 (0.5-1.4) 08/20/17 01:33 PTT (Actin FS) 27.4 SECONDS (26.0-38.0) 08/20/17 01:33 Sodium 135 mEq/L (136-145) L 08/22/17 05:28 Potassium 3.8 mEq/L (3.5-5.1) 08/22/17 05:28 Chloride 103 mEq/L (98-107) 08/22/17 05:28 Carbon Dioxide 25.5 mEq/L (21.0-31.0) 08/22/17 05:28 Anion Gap 10.3 (7.0-16.0) 08/22/17 05:28 BUN 11 mg/dL (7-25) 08/22/17 05:28 Creatinine 0.7 mg/dL (0.6-1.2) 08/22/17 05:28 Est GFR ( Amer) TNP 08/22/17 05:28 Est GFR (Non-Af Amer) TNP 08/22/17 05:28 BUN/Creatinine Ratio 15.7 08/22/17 05:28 Glucose 84 mg/dL (70-105) 08/22/17 05:28 Whole Bld Lactic Acid 0.54 mmol/L (0.60-1.99) L 08/20/17 01:58 Calcium 8.8 mg/dL (8.6-10.3) 08/22/17 05:28 Total Bilirubin 0.6 mg/dL (0.3-1.0) 08/22/17 05:28 AST 19 U/L (13-39) 08/22/17 05:28 ALT 18 U/L (7-52) 08/22/17 05:28 Alkaline Phosphatase 121 U/L (34-104) H 08/22/17 05:28 Creatine Kinase 13 U/L (30-223) L 08/20/17 01:58 Troponin I 0.01 ng/mL (0.01-0.05) 08/20/17 01:58 B-Natriuretic Peptide 27.0 pg/mL (5.0-100.0) 08/20/17 01:58 Total Protein 6.1 gm/dL (6.0-8.3) 08/22/17 05:28 Albumin 2.9 gm/dL (3.7-5.3) L 08/22/17 05:28 Globulin 3.2 gm/dL 08/22/17 05:28 Albumin/Globulin Ratio 0.9 (1.0-1.8) L 08/22/17 05:28 Triglycerides 144 mg/dL (<150) 08/20/17 01:58 Cholesterol 124 mg/dL (<200) 08/20/17 01:58 LDL Cholesterol Direct 69 mg/dL (75-193) L 08/20/17 01:58 HDL Cholesterol 24 mg/dL (23-92) 08/20/17 01:58 Lipase 43 U/L (11-82) 08/22/17 05:28 - Physical Exam Vitals and I&O: Vital Signs Temp 97.4 F 08/22/17 04:00 Pulse 72 08/22/17 04:00 Resp 18 08/22/17 04:00 BP 127/67 08/22/17 04:00 Pulse Ox 97 08/22/17 04:00 Intake & Output 08/21/17 08/22/17 08/22/17 18:59 06:59 18:59 Intake Total 100 100 Balance 100 100 Weight (lbs) 50.439 kg Intake: Intake, IV Amount 100 100 Piperacillin Sodium/ 100 100 Tazobact 3.375 gm In Sodium Chloride 0.9% 50 ml @ 100 mls/hr IV Q6HR [facility] Rx#:[id number] Other: # Voids 2 Active Medications: Current Medications Acetaminophen (Tylenol) 650 mg PO BID [facility] Stop: 10/19/17 08:59 Last Admin: 08/21/17 17:39 Dose: 650 mg Amlodipine Besylate (Norvasc) 5 mg PO DAILY [facility] Stop: 10/19/17 08:59 Last Admin: 08/21/17 09:37 Dose: 5 mg Ascorbic Acid (Vitamin C) 500 mg PO DAILY [facility] Stop: 10/19/17 08:59 Last Admin: 08/21/17 09:36 Dose: 500 mg Docusate Sodium (Colace) 100 mg PO DAILY [facility] Stop: 10/19/17 08:59 Last Admin: 08/21/17 09:36 Dose: 100 mg Enoxaparin Sodium (Lovenox) 40 mg SUBQ Q24H [facility] Stop: 10/20/17 17:59 Last Admin: 08/21/17 17:39 Dose: 40 mg Folic Acid (Folate) 1 mg PO DAILY [facility] Stop: 10/19/17 08:59 Last Admin: 08/21/17 09:38 Dose: 1 mg Piperacillin Sod/Tazobactam (Sod 3.375 gm/ Sodium Chloride) 50 mls @ 100 mls/ hr IV Q6HR [facility] Stop: 10/19/17 17:59 Last Infusion: 08/22/17 06:07 Dose: Infused Lactobacillus Rhamnosus (Culturelle) 1 each PO DAILY [facility] Stop: 10/21/17 08:59 Magnesium Hydroxide (Milk Of Magnesia) 30 ml PO HS PRN PRN Reason: Constipation Stop: 10/19/17 07:16 Miscellaneous (Probiotic Screen) 1 ea [facility] PRN PRN PRN Reason: PROTOCOL Stop: 10/20/17 13:55 Ondansetron HCl (Zofran) 4 mg IV Q6H PRN PRN Reason: Nausea / Vomiting Stop: 10/20/17 10:26 Last Admin: 08/21/17 13:03 Dose: 4 mg Pantoprazole Sodium (Protonix) 40 mg IVP DAILY [facility] Stop: 10/20/17 11:59 Last Admin: 08/21/17 13:12 Dose: 40 mg Vitamin D (Vitamin D) 800 iu PO DAILY [facility] Stop: 10/19/17 08:59 Last Admin: 08/21/17 09:36 Dose: 800 iu Zinc Sulfate (Zinc Sulfate) 220 mg PO DAILY [facility] Stop: 10/19/17 08:59 Last Admin: 08/21/17 09:36 Dose: 220 mg General: Alert, Oriented x3, No acute distress HEENT: Atraumatic, PERRLA, EOMI Neck: Supple Cardiovascular: Regular rate, Normal S1, Normal S2 Abdomen: Bowel sounds Extremities: no Clubbing, no Cyanosis, no Edema Skin: Other (presence of drainage to the surgical site. ) Assessment/Plan - Assessment Assessment: abdominal wall cellulitis Wound dehiscence. R/o entero-cutaneous fistula abdominal pain H/o Colon CA s/p partial colectomy ( on 08/01/2017). diverticulitis type 2 DM HTN history of colon polyps distended gallbladder with possible bile sludge noted on CT Abd Rectal cancer s/p low anterior resection -- pathology shows no residual malignancy - Plan Plan: wound consult ID consult Hem/onc consult general surgery consult CBC,CMP tomorrow IV Zosyn Abdominal US this AM.
--- NOTE | 2017-08-22 09:07 | GI Progress Note ---
Subjective - Review of Systems Subjective: DENIES ABD PAIN Objective - Results Result Diagrams: 08/22/17 05:28 08/22/17 05:28 Recent Labs: Laboratory Last Values WBC 6.2 Th/cmm (4.8-10.8) 08/22/17 05:28 RBC 4.15 Mil/cmm (3.80-5.20) 08/22/17 05:28 Hgb 13.1 gm/dL (12-16) 08/22/17 05:28 Hct 39.0 % (41.0-60) L 08/22/17 05:28 MCV 94.0 fl (81-100) 08/22/17 05:28 MCH 31.5 pg (27.0-31.0) H 08/22/17 05:28 MCHC Differential 33.5 pg (28.0-36.0) 08/22/17 05:28 RDW 12.6 % (11.5-20.0) 08/22/17 05:28 Plt Count 304 Th/cmm (150-400) 08/22/17 05:28 MPV 8.1 fl 08/22/17 05:28 Neutrophils % 61.1 % (40.0-80.0) 08/22/17 05:28 Lymphocytes % 17.6 % (20.0-50.0) L 08/22/17 05:28 Monocytes % 9.3 % (2.0-10.0) 08/22/17 05:28 Eosinophils % 11.2 % (0.0-5.0) H 08/22/17 05:28 Basophils % 0.8 % (0.0-2.0) 08/22/17 05:28 PT 10.4 SECONDS (9.5-11.5) 08/20/17 01:33 INR 1.00 (0.5-1.4) 08/20/17 01:33 PTT (Actin FS) 27.4 SECONDS (26.0-38.0) 08/20/17 01:33 Sodium 135 mEq/L (136-145) L 08/22/17 05:28 Potassium 3.8 mEq/L (3.5-5.1) 08/22/17 05:28 Chloride 103 mEq/L (98-107) 08/22/17 05:28 Carbon Dioxide 25.5 mEq/L (21.0-31.0) 08/22/17 05:28 Anion Gap 10.3 (7.0-16.0) 08/22/17 05:28 BUN 11 mg/dL (7-25) 08/22/17 05:28 Creatinine 0.7 mg/dL (0.6-1.2) 08/22/17 05:28 Est GFR ( Amer) TNP 08/22/17 05:28 Est GFR (Non-Af Amer) TNP 08/22/17 05:28 BUN/Creatinine Ratio 15.7 08/22/17 05:28 Glucose 84 mg/dL (70-105) 08/22/17 05:28 Whole Bld Lactic Acid 0.54 mmol/L (0.60-1.99) L 08/20/17 01:58 Calcium 8.8 mg/dL (8.6-10.3) 08/22/17 05:28 Total Bilirubin 0.6 mg/dL (0.3-1.0) 08/22/17 05:28 AST 19 U/L (13-39) 08/22/17 05:28 ALT 18 U/L (7-52) 08/22/17 05:28 Alkaline Phosphatase 121 U/L (34-104) H 08/22/17 05:28 Creatine Kinase 13 U/L (30-223) L 08/20/17 01:58 Troponin I 0.01 ng/mL (0.01-0.05) 08/20/17 01:58 B-Natriuretic Peptide 27.0 pg/mL (5.0-100.0) 08/20/17 01:58 Total Protein 6.1 gm/dL (6.0-8.3) 08/22/17 05:28 Albumin 2.9 gm/dL (3.7-5.3) L 08/22/17 05:28 Globulin 3.2 gm/dL 08/22/17 05:28 Albumin/Globulin Ratio 0.9 (1.0-1.8) L 08/22/17 05:28 Triglycerides 144 mg/dL (<150) 08/20/17 01:58 Cholesterol 124 mg/dL (<200) 08/20/17 01:58 LDL Cholesterol Direct 69 mg/dL (75-193) L 08/20/17 01:58 HDL Cholesterol 24 mg/dL (23-92) 08/20/17 01:58 Lipase 43 U/L (11-82) 08/22/17 05:28 - Physical Exam Vitals and I&O: Vital Signs Temp 97.2 F 08/22/17 07:58 Pulse 83 08/22/17 07:58 Resp 18 08/22/17 07:58 BP 136/65 08/22/17 07:58 Pulse Ox 97 08/22/17 07:58 Intake & Output 08/21/17 08/22/17 08/22/17 18:59 06:59 18:59 Intake Total 100 100 Balance 100 100 Weight (lbs) 50.439 kg Intake: Intake, IV Amount 100 100 Piperacillin Sodium/ 100 100 Tazobact 3.375 gm In Sodium Chloride 0.9% 50 ml @ 100 mls/hr IV Q6HR [facility] Rx#:[id number] Other: # Voids 2 Active Medications: Current Medications Acetaminophen (Tylenol) 650 mg PO BID [facility] Stop: 10/19/17 08:59 Last Admin: 08/21/17 17:39 Dose: 650 mg Amlodipine Besylate (Norvasc) 5 mg PO DAILY [facility] Stop: 10/19/17 08:59 Last Admin: 08/21/17 09:37 Dose: 5 mg Ascorbic Acid (Vitamin C) 500 mg PO DAILY [facility] Stop: 10/19/17 08:59 Last Admin: 08/21/17 09:36 Dose: 500 mg Docusate Sodium (Colace) 100 mg PO DAILY [facility] Stop: 10/19/17 08:59 Last Admin: 08/21/17 09:36 Dose: 100 mg Enoxaparin Sodium (Lovenox) 40 mg SUBQ Q24H [facility] Stop: 10/20/17 17:59 Last Admin: 08/21/17 17:39 Dose: 40 mg Folic Acid (Folate) 1 mg PO DAILY [facility] Stop: 10/19/17 08:59 Last Admin: 08/21/17 09:38 Dose: 1 mg Piperacillin Sod/Tazobactam (Sod 3.375 gm/ Sodium Chloride) 50 mls @ 100 mls/ hr IV Q6HR [facility] Stop: 10/19/17 17:59 Last Infusion: 08/22/17 06:07 Dose: Infused Lactobacillus Rhamnosus (Culturelle) 1 each PO DAILY [facility] Stop: 10/21/17 08:59 Magnesium Hydroxide (Milk Of Magnesia) 30 ml PO HS PRN PRN Reason: Constipation Stop: 10/19/17 07:16 Miscellaneous (Probiotic Screen) 1 ea MC PRN PRN PRN Reason: PROTOCOL Stop: 10/20/17 13:55 Ondansetron HCl (Zofran) 4 mg IV Q6H PRN PRN Reason: Nausea / Vomiting Stop: 10/20/17 10:26 Last Admin: 08/21/17 13:03 Dose: 4 mg Pantoprazole Sodium (Protonix) 40 mg IVP DAILY [facility] Stop: 10/20/17 11:59 Last Admin: 08/21/17 13:12 Dose: 40 mg Vitamin D (Vitamin D) 800 iu PO DAILY [facility] Stop: 10/19/17 08:59 Last Admin: 08/21/17 09:36 Dose: 800 iu Zinc Sulfate (Zinc Sulfate) 220 mg PO DAILY [facility] Stop: 10/19/17 08:59 Last Admin: 08/21/17 09:36 Dose: 220 mg General: Alert, Oriented x3, No acute distress HEENT: Atraumatic, PERRLA, EOMI Neck: Supple Cardiovascular: Regular rate, Normal S1, Normal S2 Abdomen: Bowel sounds Extremities: no Clubbing, no Cyanosis, no Edema Skin: Other (presence of drainage to the surgical site. ) Assessment/Plan - Assessment Assessment: 82 YO FEMALE WITH COLON CA WOUND WITH DISCHARGE NOW IMPROVED ALSO HAS GB SLUDE 1.CONT SUPP CARE 2.SURGERY INPUT
[2017-08-22] MEDS: Multivitamin w/ Minerals Tab PO SCH (09:50)
[2017-08-22] MEDS: Lactobacillus Rhamnosus 10 Billion CFU Capsule PO SCH (09:51)
--- NOTE | 2017-08-22 10:34 | Diagnostic Imaging Report ---
Abdominal ultrasound HISTORY: Pain The liver exhibits a homogeneous parenchyma. No focal lesions. There is a somewhat distended gallbladder with low level intraluminal echoes suggesting "sludge" (crystalline bile). No discrete calculi are visualized. No biliary dilatation (common bile duct is 5 mm). This cannot be seen due to bowel gas. The right kidney is decreased in size (7.8 x 4.2 x 4.3 cm). No focal lesions or hydronephrosis. The left kidney is normal in size. A 1.2 cm cyst is seen within the cortex. No hydronephrosis. No other retroperitoneal or intra-abdominal abnormalities. IMPRESSION: 1. Somewhat distended gallbladder with low-level intraluminal echoes suggesting "sludge". No discrete calculi are seen. If necessary, a radionuclide biliary scan (HIDA scan) would provide for further assessment of gallbladder function. 2. Diminished size of the right kidney 3. Small left renal cyst
--- NOTE | 2017-08-22 12:06 | Consultation ---
DATE OF CONSULTATION: 08/21/2017 REASON FOR CONSULTATION: Nausea, vomiting, abnormal CAT scan. HISTORY OF PRESENT ILLNESS: This consult was obtained through the courtesy of Dr. Wadsworth for this 82-year-old recently diagnosed with colon cancer, had surgery with partial colectomy at [place] some 20 days ago. Then she was transferred to a rehab center and while she was there she started having some nausea and then some discharge coming from the wound, so the patient was transferred here and was admitted to the hospital. Then she had a CAT scan, which showed distended gallbladder with possible sludge. GI consult was called then for further evaluation. PAST MEDICAL HISTORY: Hypertension and colon cancer. PAST SURGICAL HISTORY: Colon surgery 08/01/2017. SOCIAL HISTORY: Nonsmoker, nonalcoholic or IV drug abuser. FAMILY HISTORY: Noncontributory. ALLERGIES: No known drug allergy. MEDICATIONS: The patient is on Tylenol, amlodipine, vitamin C, Colace, folic acid, milk of magnesia, Zofran, Zosyn, zinc. REVIEW OF SYSTEMS: She was constipated after surgery, but with Colace she got better and she had some nausea and vomiting as stated above. PHYSICAL EXAMINATION: GENERAL: The patient is awake, oriented to self, place, and time. She is in mild distress. VITAL SIGNS: heart rate 78, respiratory rate 20, temperature is 97.7. HEAD AND NECK: Pupils reactive to light. Extraocular muscles intact. Sclerae are anicteric. Conjunctivae not pale. Oral cavity, no lesion. Neck supple. No jugular venous distention. No carotid bruit or lymph node. CHEST: Good respiratory movements. LUNGS: Clear to auscultation. CARDIOVASCULAR: Regular rate and rhythm. No murmur or gallop. ABDOMEN: Soft. Positive bowel sounds. There are some yousif and there is some pus coming from the bottom part of the scar. EXTREMITIES: Lower extremities, no edema. CENTRAL NERVOUS SYSTEM: Grossly nonfocal. LABORATORY DATA: White count was 12.9 on presentation and now it is 7.1, H and H are 12.7 and 37.7 with the platelets of 299. PT/INR is normal. Chemistry showed normal liver enzymes. Bilirubin is 0.7, AST 14, ALT 20, alkaline phosphatase is slightly elevated at 158. CT of the abdomen and pelvis showed postsurgical changes with evidence of prior partial colectomy in the transverse colon and rectosigmoid area, some inflammatory changes throughout the colon, some diverticulosis. There is inflammatory changes and pockets of gas in the lesion of the wound and the skin of the abdominal wall, some inflammatory changes in the mesentery, mildly distended gallbladder with possible sludge, anasarca. IMPRESSION: An 82-year-old status post colon resection, now presenting with infected wound and nausea and abnormal CAT scan. ASSESSMENT AND PLAN: 1. Nausea, vomiting, this most likely related to the infected wound and the postsurgical changes, less likely related to the gallbladder. Recommendations: 1. IV fluids. 2. IV antibiotics. 3. Zofran. 4. Recheck labs in the morning. 2. Distended gallbladder with possible sludge, less likely to be cholecystitis given the normal liver enzymes. We will get an abdominal ultrasound. We will continue with antibiotic Zofran. If the patient remains symptomatic, consideration will be for HIDA scan. 3. History of colon cancer. This will be followed later on as an outpatient. Other medical problems such as hypertension as per Dr. Wadsworth. Thank you Dr. Juan Wadsworth for allowing me to participate in the care of the patient. If you have any further questions, please let me know. JOB# [id number] RL
--- NOTE | 2017-08-22 15:58 | General Progress Note ---
Subjective - Review of Systems Service Date: 08/22/17 Events since last encounter: op report on 08/01/17 read had colon resection with low anastomosis labs here now does not show evidence of infection altho the incision has some drainage at the midline CT scan does not show abscess patient having bowel movement and tolerating oral intake no evidence of anastomosis leak clinically Objective - Results Result Diagrams: 08/22/17 05:28 08/22/17 05:28 Recent Labs: Laboratory Last Values WBC 6.2 Th/cmm (4.8-10.8) 08/22/17 05:28 RBC 4.15 Mil/cmm (3.80-5.20) 08/22/17 05:28 Hgb 13.1 gm/dL (12-16) 08/22/17 05:28 Hct 39.0 % (41.0-60) L 08/22/17 05:28 MCV 94.0 fl (81-100) 08/22/17 05:28 MCH 31.5 pg (27.0-31.0) H 08/22/17 05:28 MCHC Differential 33.5 pg (28.0-36.0) 08/22/17 05:28 RDW 12.6 % (11.5-20.0) 08/22/17 05:28 Plt Count 304 Th/cmm (150-400) 08/22/17 05:28 MPV 8.1 fl 08/22/17 05:28 Neutrophils % 61.1 % (40.0-80.0) 08/22/17 05:28 Lymphocytes % 17.6 % (20.0-50.0) L 08/22/17 05:28 Monocytes % 9.3 % (2.0-10.0) 08/22/17 05:28 Eosinophils % 11.2 % (0.0-5.0) H 08/22/17 05:28 Basophils % 0.8 % (0.0-2.0) 08/22/17 05:28 PT 10.4 SECONDS (9.5-11.5) 08/20/17 01:33 INR 1.00 (0.5-1.4) 08/20/17 01:33 PTT (Actin FS) 27.4 SECONDS (26.0-38.0) 08/20/17 01:33 Sodium 135 mEq/L (136-145) L 08/22/17 05:28 Potassium 3.8 mEq/L (3.5-5.1) 08/22/17 05:28 Chloride 103 mEq/L (98-107) 08/22/17 05:28 Carbon Dioxide 25.5 mEq/L (21.0-31.0) 08/22/17 05:28 Anion Gap 10.3 (7.0-16.0) 08/22/17 05:28 BUN 11 mg/dL (7-25) 08/22/17 05:28 Creatinine 0.7 mg/dL (0.6-1.2) 08/22/17 05:28 Est GFR ( Amer) TNP 08/22/17 05:28 Est GFR (Non-Af Amer) TNP 08/22/17 05:28 BUN/Creatinine Ratio 15.7 08/22/17 05:28 Glucose 84 mg/dL (70-105) 08/22/17 05:28 Whole Bld Lactic Acid 0.54 mmol/L (0.60-1.99) L 08/20/17 01:58 Calcium 8.8 mg/dL (8.6-10.3) 08/22/17 05:28 Total Bilirubin 0.6 mg/dL (0.3-1.0) 08/22/17 05:28 AST 19 U/L (13-39) 08/22/17 05:28 ALT 18 U/L (7-52) 08/22/17 05:28 Alkaline Phosphatase 121 U/L (34-104) H 08/22/17 05:28 Creatine Kinase 13 U/L (30-223) L 08/20/17 01:58 Troponin I 0.01 ng/mL (0.01-0.05) 08/20/17 01:58 B-Natriuretic Peptide 27.0 pg/mL (5.0-100.0) 08/20/17 01:58 Total Protein 6.1 gm/dL (6.0-8.3) 08/22/17 05:28 Albumin 2.9 gm/dL (3.7-5.3) L 08/22/17 05:28 Globulin 3.2 gm/dL 08/22/17 05:28 Albumin/Globulin Ratio 0.9 (1.0-1.8) L 08/22/17 05:28 Triglycerides 144 mg/dL (<150) 08/20/17 01:58 Cholesterol 124 mg/dL (<200) 08/20/17 01:58 LDL Cholesterol Direct 69 mg/dL (75-193) L 08/20/17 01:58 HDL Cholesterol 24 mg/dL (23-92) 08/20/17 01:58 Lipase 43 U/L (11-82) 08/22/17 05:28 - Physical Exam Vitals and I&O: Vital Signs Temp 97.2 F 08/22/17 07:58 Pulse 83 08/22/17 09:52 Resp 18 08/22/17 08:00 BP 136/65 08/22/17 09:52 Pulse Ox 97 08/22/17 07:58 Intake & Output 08/21/17 08/22/17 08/22/17 18:59 06:59 18:59 Intake Total 100 100 Balance 100 100 Weight (lbs) 50.439 kg Intake: Intake, IV Amount 100 100 Piperacillin Sodium/ 100 100 Tazobact 3.375 gm In Sodium Chloride 0.9% 50 ml @ 100 mls/hr IV Q6HR [facility] Rx#:[id number] Other: # Voids 2 Active Medications: Current Medications Acetaminophen (Tylenol) 650 mg PO BID [facility] Stop: 10/19/17 08:59 Last Admin: 08/22/17 09:57 Dose: 650 mg Amlodipine Besylate (Norvasc) 5 mg PO DAILY [facility] Stop: 10/19/17 08:59 Last Admin: 08/22/17 09:52 Dose: 5 mg Ascorbic Acid (Vitamin C) 500 mg PO DAILY [facility] Stop: 10/19/17 08:59 Last Admin: 08/22/17 09:51 Dose: 500 mg Docusate Sodium (Colace) 100 mg PO DAILY [facility] Stop: 10/19/17 08:59 Last Admin: 08/22/17 09:51 Dose: 100 mg Enoxaparin Sodium (Lovenox) 40 mg SUBQ Q24H [facility] Stop: 10/20/17 17:59 Last Admin: 08/21/17 17:39 Dose: 40 mg Folic Acid (Folate) 1 mg PO DAILY [facility] Stop: 10/19/17 08:59 Last Admin: 08/22/17 09:52 Dose: 1 mg Piperacillin Sod/Tazobactam (Sod 3.375 gm/ Sodium Chloride) 50 mls @ 100 mls/ hr IV Q6HR [facility] Stop: 10/19/17 17:59 Last Admin: 08/22/17 12:17 Dose: 100 mls/hr Lactobacillus Rhamnosus (Culturelle) 1 each PO DAILY [facility] Stop: 10/21/17 08:59 Last Admin: 08/22/17 09:51 Dose: 1 each Magnesium Hydroxide (Milk Of Magnesia) 30 ml PO HS PRN PRN Reason: Constipation Stop: 10/19/17 07:16 Miscellaneous (Probiotic Screen) 1 ea [facility] PRN PRN PRN Reason: PROTOCOL Stop: 10/20/17 13:55 Ondansetron HCl (Zofran) 4 mg IV Q6H PRN PRN Reason: Nausea / Vomiting Stop: 10/20/17 10:26 Last Admin: 08/21/17 13:03 Dose: 4 mg Pantoprazole Sodium (Protonix) 40 mg IVP DAILY [facility] Stop: 10/20/17 11:59 Last Admin: 08/22/17 09:52 Dose: 40 mg Vitamin D (Vitamin D) 800 iu PO DAILY [facility] Stop: 10/19/17 08:59 Last Admin: 08/22/17 09:52 Dose: 800 iu Zinc Sulfate (Zinc Sulfate) 220 mg PO DAILY [facility] Stop: 10/19/17 08:59 Last Admin: 08/22/17 09:50 Dose: 220 mg General: Alert, Oriented x3, No acute distress HEENT: Atraumatic, PERRLA, EOMI Neck: Supple Cardiovascular: Regular rate, Normal S1, Normal S2 Abdomen: Bowel sounds Extremities: no Clubbing, no Cyanosis, no Edema Skin: Other (presence of drainage to the surgical site. )
--- NOTE | 2017-08-22 16:24 | General Progress Note ---
Subjective - Review of Systems Service Date: 08/22/17 Subjective: No abd pain Objective - Results Result Diagrams: 08/22/17 05:28 08/22/17 05:28 Recent Labs: Laboratory Last Values WBC 6.2 Th/cmm (4.8-10.8) 08/22/17 05:28 RBC 4.15 Mil/cmm (3.80-5.20) 08/22/17 05:28 Hgb 13.1 gm/dL (12-16) 08/22/17 05:28 Hct 39.0 % (41.0-60) L 08/22/17 05:28 MCV 94.0 fl (81-100) 08/22/17 05:28 MCH 31.5 pg (27.0-31.0) H 08/22/17 05:28 MCHC Differential 33.5 pg (28.0-36.0) 08/22/17 05:28 RDW 12.6 % (11.5-20.0) 08/22/17 05:28 Plt Count 304 Th/cmm (150-400) 08/22/17 05:28 MPV 8.1 fl 08/22/17 05:28 Neutrophils % 61.1 % (40.0-80.0) 08/22/17 05:28 Lymphocytes % 17.6 % (20.0-50.0) L 08/22/17 05:28 Monocytes % 9.3 % (2.0-10.0) 08/22/17 05:28 Eosinophils % 11.2 % (0.0-5.0) H 08/22/17 05:28 Basophils % 0.8 % (0.0-2.0) 08/22/17 05:28 PT 10.4 SECONDS (9.5-11.5) 08/20/17 01:33 INR 1.00 (0.5-1.4) 08/20/17 01:33 PTT (Actin FS) 27.4 SECONDS (26.0-38.0) 08/20/17 01:33 Sodium 135 mEq/L (136-145) L 08/22/17 05:28 Potassium 3.8 mEq/L (3.5-5.1) 08/22/17 05:28 Chloride 103 mEq/L (98-107) 08/22/17 05:28 Carbon Dioxide 25.5 mEq/L (21.0-31.0) 08/22/17 05:28 Anion Gap 10.3 (7.0-16.0) 08/22/17 05:28 BUN 11 mg/dL (7-25) 08/22/17 05:28 Creatinine 0.7 mg/dL (0.6-1.2) 08/22/17 05:28 Est GFR ( Amer) TNP 08/22/17 05:28 Est GFR (Non-Af Amer) TNP 08/22/17 05:28 BUN/Creatinine Ratio 15.7 08/22/17 05:28 Glucose 84 mg/dL (70-105) 08/22/17 05:28 Whole Bld Lactic Acid 0.54 mmol/L (0.60-1.99) L 08/20/17 01:58 Calcium 8.8 mg/dL (8.6-10.3) 08/22/17 05:28 Total Bilirubin 0.6 mg/dL (0.3-1.0) 08/22/17 05:28 AST 19 U/L (13-39) 08/22/17 05:28 ALT 18 U/L (7-52) 08/22/17 05:28 Alkaline Phosphatase 121 U/L (34-104) H 08/22/17 05:28 Creatine Kinase 13 U/L (30-223) L 08/20/17 01:58 Troponin I 0.01 ng/mL (0.01-0.05) 08/20/17 01:58 B-Natriuretic Peptide 27.0 pg/mL (5.0-100.0) 08/20/17 01:58 Total Protein 6.1 gm/dL (6.0-8.3) 08/22/17 05:28 Albumin 2.9 gm/dL (3.7-5.3) L 08/22/17 05:28 Globulin 3.2 gm/dL 08/22/17 05:28 Albumin/Globulin Ratio 0.9 (1.0-1.8) L 08/22/17 05:28 Triglycerides 144 mg/dL (<150) 08/20/17 01:58 Cholesterol 124 mg/dL (<200) 08/20/17 01:58 LDL Cholesterol Direct 69 mg/dL (75-193) L 08/20/17 01:58 HDL Cholesterol 24 mg/dL (23-92) 08/20/17 01:58 Lipase 43 U/L (11-82) 08/22/17 05:28 - Physical Exam Vitals and I&O: Vital Signs Temp 98.7 F 08/22/17 16:04 Pulse 88 08/22/17 16:04 Resp 19 08/22/17 16:04 BP 119/66 08/22/17 16:04 Pulse Ox 97 08/22/17 16:04 Intake & Output 08/21/17 08/22/17 08/22/17 18:59 06:59 18:59 Intake Total 100 100 Balance 100 100 Weight (lbs) 50.439 kg Intake: Intake, IV Amount 100 100 Piperacillin Sodium/ 100 100 Tazobact 3.375 gm In Sodium Chloride 0.9% 50 ml @ 100 mls/hr IV Q6HR [facility] Rx#:[id number] Other: # Voids 2 Active Medications: Current Medications Acetaminophen (Tylenol) 650 mg PO BID [facility] Stop: 10/19/17 08:59 Last Admin: 08/22/17 09:57 Dose: 650 mg Amlodipine Besylate (Norvasc) 5 mg PO DAILY [facility] Stop: 10/19/17 08:59 Last Admin: 08/22/17 09:52 Dose: 5 mg Ascorbic Acid (Vitamin C) 500 mg PO DAILY [facility] Stop: 10/19/17 08:59 Last Admin: 08/22/17 09:51 Dose: 500 mg Docusate Sodium (Colace) 100 mg PO DAILY [facility] Stop: 10/19/17 08:59 Last Admin: 08/22/17 09:51 Dose: 100 mg Enoxaparin Sodium (Lovenox) 40 mg SUBQ Q24H [facility] Stop: 10/20/17 17:59 Last Admin: 08/21/17 17:39 Dose: 40 mg Folic Acid (Folate) 1 mg PO DAILY [facility] Stop: 10/19/17 08:59 Last Admin: 08/22/17 09:52 Dose: 1 mg Piperacillin Sod/Tazobactam (Sod 3.375 gm/ Sodium Chloride) 50 mls @ 100 mls/ hr IV Q6HR [facility] Stop: 10/19/17 17:59 Last Admin: 08/22/17 12:17 Dose: 100 mls/hr Lactobacillus Rhamnosus (Culturelle) 1 each PO DAILY [facility] Stop: 10/21/17 08:59 Last Admin: 08/22/17 09:51 Dose: 1 each Magnesium Hydroxide (Milk Of Magnesia) 30 ml PO HS PRN PRN Reason: Constipation Stop: 10/19/17 07:16 Miscellaneous (Probiotic Screen) 1 ea MC PRN PRN PRN Reason: PROTOCOL Stop: 10/20/17 13:55 Ondansetron HCl (Zofran) 4 mg IV Q6H PRN PRN Reason: Nausea / Vomiting Stop: 10/20/17 10:26 Last Admin: 08/21/17 13:03 Dose: 4 mg Pantoprazole Sodium (Protonix) 40 mg IVP DAILY [facility] Stop: 10/20/17 11:59 Last Admin: 08/22/17 09:52 Dose: 40 mg Vitamin D (Vitamin D) 800 iu PO DAILY [facility] Stop: 10/19/17 08:59 Last Admin: 08/22/17 09:52 Dose: 800 iu Zinc Sulfate (Zinc Sulfate) 220 mg PO DAILY [facility] Stop: 10/19/17 08:59 Last Admin: 08/22/17 09:50 Dose: 220 mg Physical Exam: yousif in place minimal oozing no bleeding General: Alert, Oriented x3, No acute distress HEENT: Atraumatic, PERRLA, EOMI Neck: Supple Cardiovascular: Regular rate, Normal S1, Normal S2 Abdomen: Bowel sounds Extremities: no Clubbing, no Cyanosis, no Edema Skin: Other (presence of drainage to the surgical site. ) Assessment/Plan - Assessment Assessment: * Rectal cancer s/p low anterior resection * abd wound infection. * pathology shows no residual malignancy Start lovenx proph
[2017-08-22] MEDS: Enoxaparin 40 mg/0.4 mL 0.4mL Syr SUBQ SCH (17:11)
[2017-08-22 17:57] LABS: URINE BILIRUBIN NEGATIVE (NEGATIVE); URINE BLOOD NEGATIVE (NEGATIVE); URINE GLUCOSE (UA) NEGATIVE (NEGATIVE); URINE KETONE >=80 mg/dL (NEGATIVE); URINE PROTEIN TRACE mg/dL (NEGATIVE); URINE UROBILINOGEN 0.2 E.U./dL (0.2 - 1.0)
[2017-08-22 18:02] LABS: URINE BACTERIA FEW /hpf (NONE SEEN); URINE CALCIUM OXALATE CRYSTALS MODERATE /hpf; URINE COLOR YELLOW; URINE EPITHELIAL CELLS FEW /lpf (FEW); URINE HYALINE CAST 0-2 /lpf (0-2); URINE RBC 0-2 /hpf (0-5)
[2017-08-23 05:22] LABS: % BASOPHILS 0.2 % (0.0-2.0); % EOSINOPHILS 12.2 % (0.0-5.0); % LYMPHOCYTES 22.7 % (20.0-50.0); % MONOCYTES 10.6 % (2.0-10.0); % NEUTROPHILS 54.3 % (40.0-80.0); HEMATOCRIT 37.4 % (41.0-60); HEMOGLOBIN 12.4 gm/dL (12-16); MEAN CELL VOLUME 93.4 fl (81-100); MEAN CORPUSCULAR HGB CONC 33.1 pg (28.0-36.0); MEAN PLATELET VOLUME 8.4 fl; NEUTROPHILE ABSOLUTE 2.8 Th/cmm (1.8-8.0); PLATELET COUNT 274 Th/cmm (150-400); RED CELL DISTRIBUTION WIDTH 12.5 % (11.5-20.0); WHITE BLOOD COUNT 5.1 Th/cmm (4.8-10.8)
[2017-08-23 05:40] LABS: ANION GAP 13.6 (7.0-16.0); BUN - UREA NITROGEN 12 mg/dL (7-25); CALCIUM SERUM 8.7 mg/dL (8.6-10.3); CARBON DIOXIDE 22.8 mEq/L (21.0-31.0); CHLORIDE 102 mEq/L (98-107); CREATININE - SERUM 0.6 mg/dL (0.6-1.2); GLUCOSE 98 mg/dL (70-105); POTASSIUM SERUM 3.4 mEq/L (3.5-5.1); SODIUM SERUM 135 mEq/L (136-145)
[2017-08-23] MEDS ORDERED: Potassium Chloride 20 mEq ER Tab PO ONE (07:56)
[2017-08-23] MEDS: Lactobacillus Rhamnosus 10 Billion CFU Capsule PO SCH (08:29)
[2017-08-23] MEDS: Multivitamin w/ Minerals Tab PO SCH (08:29)
--- NOTE | 2017-08-23 09:04 | GI Progress Note ---
Subjective - Review of Systems Subjective: DENIES ABD PAIN HAS DIARRHEA Objective - Results Result Diagrams: 08/23/17 04:45 08/23/17 04:45 Recent Labs: Laboratory Last Values WBC 5.1 Th/cmm (4.8-10.8) 08/23/17 04:45 RBC 4.00 Mil/cmm (3.80-5.20) 08/23/17 04:45 Hgb 12.4 gm/dL (12-16) 08/23/17 04:45 Hct 37.4 % (41.0-60) L 08/23/17 04:45 MCV 93.4 fl (81-100) 08/23/17 04:45 MCH 31.0 pg (27.0-31.0) 08/23/17 04:45 MCHC Differential 33.1 pg (28.0-36.0) 08/23/17 04:45 RDW 12.5 % (11.5-20.0) 08/23/17 04:45 Plt Count 274 Th/cmm (150-400) 08/23/17 04:45 MPV 8.4 fl 08/23/17 04:45 Neutrophils % 54.3 % (40.0-80.0) 08/23/17 04:45 Lymphocytes % 22.7 % (20.0-50.0) 08/23/17 04:45 Monocytes % 10.6 % (2.0-10.0) H 08/23/17 04:45 Eosinophils % 12.2 % (0.0-5.0) H 08/23/17 04:45 Basophils % 0.2 % (0.0-2.0) 08/23/17 04:45 PT 10.4 SECONDS (9.5-11.5) 08/20/17 01:33 INR 1.00 (0.5-1.4) 08/20/17 01:33 PTT (Actin FS) 27.4 SECONDS (26.0-38.0) 08/20/17 01:33 Sodium 135 mEq/L (136-145) L 08/23/17 04:45 Potassium 3.4 mEq/L (3.5-5.1) L 08/23/17 04:45 Chloride 102 mEq/L (98-107) 08/23/17 04:45 Carbon Dioxide 22.8 mEq/L (21.0-31.0) 08/23/17 04:45 Anion Gap 13.6 (7.0-16.0) 08/23/17 04:45 BUN 12 mg/dL (7-25) 08/23/17 04:45 Creatinine 0.6 mg/dL (0.6-1.2) 08/23/17 04:45 Est GFR ( Amer) TNP 08/23/17 04:45 Est GFR (Non-Af Amer) TNP 08/23/17 04:45 BUN/Creatinine Ratio 20.0 08/23/17 04:45 Glucose 98 mg/dL (70-105) 08/23/17 04:45 Whole Bld Lactic Acid 0.54 mmol/L (0.60-1.99) L 08/20/17 01:58 Calcium 8.7 mg/dL (8.6-10.3) 08/23/17 04:45 Magnesium 2.0 mg/dL (1.9-2.7) 08/23/17 08:01 Total Bilirubin 0.6 mg/dL (0.3-1.0) 08/22/17 05:28 AST 19 U/L (13-39) 08/22/17 05:28 ALT 18 U/L (7-52) 08/22/17 05:28 Alkaline Phosphatase 121 U/L (34-104) H 08/22/17 05:28 Creatine Kinase 13 U/L (30-223) L 08/20/17 01:58 Troponin I 0.01 ng/mL (0.01-0.05) 08/20/17 01:58 B-Natriuretic Peptide 27.0 pg/mL (5.0-100.0) 08/20/17 01:58 Total Protein 6.1 gm/dL (6.0-8.3) 08/22/17 05:28 Albumin 2.9 gm/dL (3.7-5.3) L 08/22/17 05:28 Globulin 3.2 gm/dL 08/22/17 05:28 Albumin/Globulin Ratio 0.9 (1.0-1.8) L 08/22/17 05:28 Triglycerides 144 mg/dL (<150) 08/20/17 01:58 Cholesterol 124 mg/dL (<200) 08/20/17 01:58 LDL Cholesterol Direct 69 mg/dL (75-193) L 08/20/17 01:58 HDL Cholesterol 24 mg/dL (23-92) 08/20/17 01:58 Lipase 43 U/L (11-82) 08/22/17 05:28 Urine Source MIDSTREAM 08/22/17 17:30 Urine Color YELLOW 08/22/17 17:30 Urine Clarity HAZY (CLEAR) 08/22/17 17:30 Urine pH 6.0 (4.6 - 8.0) 08/22/17 17:30 Ur Specific [place] 1.020 (1.005-1.030) 08/22/17 17:30 Urine Protein TRACE mg/dL (NEGATIVE) 08/22/17 17:30 Urine Glucose (UA) NEGATIVE mg/dL (NEGATIVE) 08/22/17 17:30 Urine Ketones >=80 mg/dL (NEGATIVE) H 08/22/17 17:30 Urine Blood NEGATIVE (NEGATIVE) 08/22/17 17:30 Urine Nitrate NEGATIVE (NEGATIVE) 08/22/17 17:30 Urine Bilirubin NEGATIVE (NEGATIVE) 08/22/17 17:30 Urine Urobilinogen 0.2 E.U./dL (0.2 - 1.0) 08/22/17 17:30 Ur Leukocyte Esterase TRACE (NEGATIVE) H 08/22/17 17:30 Urine RBC 0-2 /hpf (0-5) 08/22/17 17:30 Urine WBC 2-5 /hpf (0-5) 08/22/17 17:30 Ur Epithelial Cells FEW /lpf (FEW) 08/22/17 17:30 Calcium Oxalate Crystal MODERATE /hpf 08/22/17 17:30 Urine Bacteria FEW /hpf (NONE SEEN) 08/22/17 17:30 Hyaline Casts 0-2 /lpf (0-2) H 08/22/17 17:30 - Physical Exam Vitals and I&O: Vital Signs Temp 98.4 F 08/23/17 07:59 Pulse 71 08/23/17 08:27 Resp 18 08/23/17 07:59 BP 139/69 08/23/17 08:27 Pulse Ox 97 08/23/17 07:59 Intake & Output 10/28/17 10/29/17 10/29/17 18:59 06:59 18:59 Intake Total 100 50 Balance 100 50 Weight (lbs) 49.895 kg Intake: Intake, IV Amount 100 50 Piperacillin Sodium/ 100 50 Tazobact 3.375 gm In Sodium Chloride 0.9% 50 ml @ 100 mls/hr IV Q6HR [facility] Rx#:[id number] Active Medications: Current Medications Acetaminophen (Tylenol) 650 mg PO BID [facility] Stop: 10/19/17 08:59 Last Admin: 08/23/17 08:26 Dose: 650 mg Amlodipine Besylate (Norvasc) 5 mg PO DAILY [facility] Stop: 10/19/17 08:59 Last Admin: 08/23/17 08:27 Dose: 5 mg Ascorbic Acid (Vitamin C) 500 mg PO DAILY [facility] Stop: 10/19/17 08:59 Last Admin: 08/23/17 08:29 Dose: 500 mg Docusate Sodium (Colace) 100 mg PO DAILY [facility] Stop: 10/19/17 08:59 Last Admin: 08/23/17 08:27 Dose: Not Given Enoxaparin Sodium (Lovenox) 40 mg SUBQ Q24H [facility] Stop: 10/20/17 17:59 Last Admin: 08/22/17 17:11 Dose: 40 mg Folic Acid (Folate) 1 mg PO DAILY [facility] Stop: 10/19/17 08:59 Last Admin: 08/23/17 08:26 Dose: 1 mg Piperacillin Sod/Tazobactam (Sod 3.375 gm/ Sodium Chloride) 50 mls @ 100 mls/ hr IV Q6HR [facility] Stop: 10/19/17 17:59 Last Admin: 08/23/17 06:03 Dose: 100 mls/hr Lactobacillus Rhamnosus (Culturelle) 1 each PO DAILY [facility] Stop: 10/21/17 08:59 Last Admin: 08/23/17 08:29 Dose: 1 each Magnesium Hydroxide (Milk Of Magnesia) 30 ml PO HS PRN PRN Reason: Constipation Stop: 10/19/17 07:16 Miscellaneous (Probiotic Screen) 1 ea MC PRN PRN PRN Reason: PROTOCOL Stop: 10/20/17 13:55 Ondansetron HCl (Zofran) 4 mg IV Q6H PRN PRN Reason: Nausea / Vomiting Stop: 10/20/17 10:26 Last Admin: 08/21/17 13:03 Dose: 4 mg Pantoprazole Sodium (Protonix) 40 mg IVP DAILY [facility] Stop: 10/20/17 11:59 Last Admin: 08/23/17 08:30 Dose: 40 mg Vitamin D (Vitamin D) 800 iu PO DAILY [facility] Stop: 10/19/17 08:59 Last Admin: 08/23/17 08:29 Dose: 800 iu Zinc Sulfate (Zinc Sulfate) 220 mg PO DAILY [facility] Stop: 10/19/17 08:59 Last Admin: 08/23/17 08:29 Dose: 220 mg General: Alert, Oriented x3, No acute distress HEENT: Atraumatic, PERRLA, EOMI Neck: Supple Cardiovascular: Regular rate, Normal S1, Normal S2 Abdomen: Bowel sounds Extremities: no Clubbing, no Cyanosis, no Edema Skin: Other (presence of drainage to the surgical site. ) Assessment/Plan - Assessment Assessment: 82 YO FEMALE WITH COLON CA WOUND WITH DISCHARGE NOW IMPROVED ALSO HAS GB SLUDGE DIARRHEA COULD BE DUE TO MEDS 1.CONT SUPP CARE 2.SURGERY INPUT 3.LOMOTIL PRN 4.CHECK KUB
--- NOTE | 2017-08-23 10:04 | Diagnostic Imaging Report ---
KUB abdominal film (portable) HISTORY: Diarrhea Air is a nonspecific gas pattern of nondilated bowel. No free at. No air. Surgical changes associated with suture material noted in the right abdomen and numerous surgical yousif over the lower abdomen and pelvis. Additional surgical suture material seen within the pelvis. IMPRESSION: 1. Surgical changes 2. Nonspecific bowel gas pattern
[2017-08-23] MEDS: Diphenoxylate/Atropine 2.5mg Tab PO PRN (13:22)
--- NOTE | 2017-08-23 16:11 | Infectious Disease Prog Note ---
Infectious Disease Subjective - Review of Systems Service Date: 08/23/17 Subjective: There is no new change, there is no fever. Infectious Disease Objective - Results Result Diagrams: 08/24/17 04:45 08/24/17 04:45 Recent Labs: Laboratory Last Values WBC 5.1 Th/cmm (4.8-10.8) 08/23/17 04:45 RBC 4.00 Mil/cmm (3.80-5.20) 08/23/17 04:45 Hgb 12.4 gm/dL (12-16) 08/23/17 04:45 Hct 37.4 % (41.0-60) L 08/23/17 04:45 MCV 93.4 fl (81-100) 08/23/17 04:45 MCH 31.0 pg (27.0-31.0) 08/23/17 04:45 MCHC Differential 33.1 pg (28.0-36.0) 08/23/17 04:45 RDW 12.5 % (11.5-20.0) 08/23/17 04:45 Plt Count 274 Th/cmm (150-400) 08/23/17 04:45 MPV 8.4 fl 08/23/17 04:45 Neutrophils % 54.3 % (40.0-80.0) 08/23/17 04:45 Lymphocytes % 22.7 % (20.0-50.0) 08/23/17 04:45 Monocytes % 10.6 % (2.0-10.0) H 08/23/17 04:45 Eosinophils % 12.2 % (0.0-5.0) H 08/23/17 04:45 Basophils % 0.2 % (0.0-2.0) 08/23/17 04:45 PT 10.4 SECONDS (9.5-11.5) 08/20/17 01:33 INR 1.00 (0.5-1.4) 08/20/17 01:33 PTT (Actin FS) 27.4 SECONDS (26.0-38.0) 08/20/17 01:33 Sodium 135 mEq/L (136-145) L 08/23/17 04:45 Potassium 3.4 mEq/L (3.5-5.1) L 08/23/17 04:45 Chloride 102 mEq/L (98-107) 08/23/17 04:45 Carbon Dioxide 22.8 mEq/L (21.0-31.0) 08/23/17 04:45 Anion Gap 13.6 (7.0-16.0) 08/23/17 04:45 BUN 12 mg/dL (7-25) 08/23/17 04:45 Creatinine 0.6 mg/dL (0.6-1.2) 08/23/17 04:45 Est GFR ( Amer) TNP 08/23/17 04:45 Est GFR (Non-Af Amer) TNP 08/23/17 04:45 BUN/Creatinine Ratio 20.0 08/23/17 04:45 Glucose 98 mg/dL (70-105) 08/23/17 04:45 Whole Bld Lactic Acid 0.54 mmol/L (0.60-1.99) L 08/20/17 01:58 Calcium 8.7 mg/dL (8.6-10.3) 08/23/17 04:45 Magnesium 2.0 mg/dL (1.9-2.7) 08/23/17 08:01 Total Bilirubin 0.6 mg/dL (0.3-1.0) 08/22/17 05:28 AST 19 U/L (13-39) 08/22/17 05:28 ALT 18 U/L (7-52) 08/22/17 05:28 Alkaline Phosphatase 121 U/L (34-104) H 08/22/17 05:28 Creatine Kinase 13 U/L (30-223) L 08/20/17 01:58 Troponin I 0.01 ng/mL (0.01-0.05) 08/20/17 01:58 B-Natriuretic Peptide 27.0 pg/mL (5.0-100.0) 08/20/17 01:58 Total Protein 6.1 gm/dL (6.0-8.3) 08/22/17 05:28 Albumin 2.9 gm/dL (3.7-5.3) L 08/22/17 05:28 Globulin 3.2 gm/dL 08/22/17 05:28 Albumin/Globulin Ratio 0.9 (1.0-1.8) L 08/22/17 05:28 Triglycerides 144 mg/dL (<150) 08/20/17 01:58 Cholesterol 124 mg/dL (<200) 08/20/17 01:58 LDL Cholesterol Direct 69 mg/dL (75-193) L 08/20/17 01:58 HDL Cholesterol 24 mg/dL (23-92) 08/20/17 01:58 Lipase 43 U/L (11-82) 08/22/17 05:28 Urine Source MIDSTREAM 08/22/17 17:30 Urine Color YELLOW 08/22/17 17:30 Urine Clarity HAZY (CLEAR) 08/22/17 17:30 Urine pH 6.0 (4.6 - 8.0) 08/22/17 17:30 Ur Specific [place] 1.020 (1.005-1.030) 08/22/17 17:30 Urine Protein TRACE mg/dL (NEGATIVE) 08/22/17 17:30 Urine Glucose (UA) NEGATIVE mg/dL (NEGATIVE) 08/22/17 17:30 Urine Ketones >=80 mg/dL (NEGATIVE) H 08/22/17 17:30 Urine Blood NEGATIVE (NEGATIVE) 08/22/17 17:30 Urine Nitrate NEGATIVE (NEGATIVE) 08/22/17 17:30 Urine Bilirubin NEGATIVE (NEGATIVE) 08/22/17 17:30 Urine Urobilinogen 0.2 E.U./dL (0.2 - 1.0) 08/22/17 17:30 Ur Leukocyte Esterase TRACE (NEGATIVE) H 08/22/17 17:30 Urine RBC 0-2 /hpf (0-5) 08/22/17 17:30 Urine WBC 2-5 /hpf (0-5) 08/22/17 17:30 Ur Epithelial Cells FEW /lpf (FEW) 08/22/17 17:30 Calcium Oxalate Crystal MODERATE /hpf 08/22/17 17:30 Urine Bacteria FEW /hpf (NONE SEEN) 08/22/17 17:30 Hyaline Casts 0-2 /lpf (0-2) H 08/22/17 17:30 - Physical Exam Vitals and I&O: Vital Signs Temp 98.4 F 08/23/17 07:59 Pulse 71 08/23/17 08:27 Resp 20 08/23/17 08:00 BP 139/69 08/23/17 08:27 Pulse Ox 97 08/23/17 07:59 Intake & Output 08/22/17 08/23/17 08/23/17 18:59 06:59 18:59 Intake Total 100 100 Balance 100 100 Weight (lbs) 49.895 kg Intake: Intake, IV Amount 100 100 Piperacillin Sodium/ 100 100 Tazobact 3.375 gm In Sodium Chloride 0.9% 50 ml @ 100 mls/hr IV Q6HR [facility] Rx#:[id number] Active Medications: Current Medications Acetaminophen (Tylenol) 650 mg PO BID [facility] Stop: 10/19/17 08:59 Last Admin: 08/23/17 08:26 Dose: 650 mg Amlodipine Besylate (Norvasc) 5 mg PO DAILY [facility] Stop: 10/19/17 08:59 Last Admin: 08/23/17 08:27 Dose: 5 mg Ascorbic Acid (Vitamin C) 500 mg PO DAILY [facility] Stop: 10/19/17 08:59 Last Admin: 08/23/17 08:29 Dose: 500 mg Diphenoxylate HCl/Atropine (Lomotil) 1 tab PO BID PRN PRN Reason: Diarrhea Stop: 10/22/17 09:02 Last Admin: 08/23/17 13:22 Dose: 1 tab Docusate Sodium (Colace) 100 mg PO DAILY [facility] Stop: 10/19/17 08:59 Last Admin: 08/23/17 08:27 Dose: Not Given Enoxaparin Sodium (Lovenox) 40 mg SUBQ Q24H [facility] Stop: 10/20/17 17:59 Last Admin: 08/22/17 17:11 Dose: 40 mg Folic Acid (Folate) 1 mg PO DAILY [facility] Stop: 10/19/17 08:59 Last Admin: 08/23/17 08:26 Dose: 1 mg Piperacillin Sod/Tazobactam (Sod 3.375 gm/ Sodium Chloride) 50 mls @ 100 mls/ hr IV Q6HR [facility] Stop: 10/19/17 17:59 Last Admin: 08/23/17 13:18 Dose: 100 mls/hr Lactobacillus Rhamnosus (Culturelle) 1 each PO DAILY [facility] Stop: 10/21/17 08:59 Last Admin: 08/23/17 08:29 Dose: 1 each Magnesium Hydroxide (Milk Of Magnesia) 30 ml PO HS PRN PRN Reason: Constipation Stop: 10/19/17 07:16 Miscellaneous (Probiotic Screen) 1 ea MC PRN PRN PRN Reason: PROTOCOL Stop: 10/20/17 13:55 Ondansetron HCl (Zofran) 4 mg IV Q6H PRN PRN Reason: Nausea / Vomiting Stop: 10/20/17 10:26 Last Admin: 08/21/17 13:03 Dose: 4 mg Pantoprazole Sodium (Protonix) 40 mg IVP DAILY [facility] Stop: 10/20/17 11:59 Last Admin: 08/23/17 08:30 Dose: 40 mg Vitamin D (Vitamin D) 800 iu PO DAILY [facility] Stop: 10/19/17 08:59 Last Admin: 08/23/17 08:29 Dose: 800 iu Zinc Sulfate (Zinc Sulfate) 220 mg PO DAILY [facility] Stop: 10/19/17 08:59 Last Admin: 08/23/17 08:29 Dose: 220 mg General: no acute distress, well developed, well nourished HEENT: atraumatic, normocephalic, PERRLA Neck: supple, no thyromegaly Cardiovascular: S1S2, regular Lungs: clear to auscultation bilaterally, clear to percussion Abdomen: soft, other (surgical wound is better.), no tender, no distended Extremities: no cyanosis, no clubbing Neurological: awake, alert, oriented Skin: intact, no rash Infectious Disease Assmt/Plan - Assessment Assessment: 1. Wound dehiscence. 2. s/p partial colectomy ( on 08/01/2017). 3. abdominal wall cellulitis. 4. DM2. 5. HTN. 6. H/o Colon CA. - Plan Plan: Continue Zosyn. Wound care.
[2017-08-23] MEDS: Enoxaparin 40 mg/0.4 mL 0.4mL Syr SUBQ SCH (17:11)
[2017-08-24 05:25] LABS: % BASOPHILS 0.3 % (0.0-2.0); % EOSINOPHILS 6.5 % (0.0-5.0); % LYMPHOCYTES 25.8 % (20.0-50.0); % MONOCYTES 8.7 % (2.0-10.0); % NEUTROPHILS 58.7 % (40.0-80.0); HEMATOCRIT 39.5 % (41.0-60); HEMOGLOBIN 13.2 gm/dL (12-16); MEAN CELL VOLUME 92.7 fl (81-100); MEAN CORPUSCULAR HGB CONC 33.4 pg (28.0-36.0); MEAN PLATELET VOLUME 8.7 fl; NEUTROPHILE ABSOLUTE 4.4 Th/cmm (1.8-8.0); PLATELET COUNT 241 Th/cmm (150-400); RED BLOOD COUNT 4.26 Mil/cmm (3.80-5.20); RED CELL DISTRIBUTION WIDTH 12.8 % (11.5-20.0)
[2017-08-24 05:26] LABS: WHITE BLOOD COUNT 7.6 Th/cmm (4.8-10.8)
[2017-08-24 05:46] LABS: ALB/GLOB RATIO 0.9 (1.0-1.8); ALKALINE PHOSPHATASE 260 U/L (34-104); ANION GAP 14.8 (7.0-16.0); BILIRUBIN,TOTAL 0.6 mg/dL (0.3-1.0); BUN - UREA NITROGEN 11 mg/dL (7-25); BUN/CREATININE RATIO 18.3; CALCIUM SERUM 8.9 mg/dL (8.6-10.3); CARBON DIOXIDE 18.9 mEq/L (21.0-31.0); CHLORIDE 102 mEq/L (98-107); CREATININE - SERUM 0.6 mg/dL (0.6-1.2); GLUCOSE 82 mg/dL (70-105); POTASSIUM SERUM 3.7 mEq/L (3.5-5.1); SGOT 81 U/L (13-39); SGPT/ALT 59 U/L (7-52); SODIUM SERUM 132 mEq/L (136-145)
--- NOTE | 2017-08-24 08:25 | General Progress Note ---
Subjective - Review of Systems Service Date: 08/24/17 Subjective: Awake, alert, oriented. Denies abdominal pain, nausea, vomiting. For abdominal US today. Patient was seen and evaluated. Poor appetite. fatigue and weakness Objective - Results Result Diagrams: 08/24/17 04:45 08/24/17 04:45 Recent Labs: Laboratory Last Values WBC 7.6 Th/cmm (4.8-10.8) D 08/24/17 04:45 RBC 4.26 Mil/cmm (3.80-5.20) 08/24/17 04:45 Hgb 13.2 gm/dL (12-16) 08/24/17 04:45 Hct 39.5 % (41.0-60) L 08/24/17 04:45 MCV 92.7 fl (81-100) 08/24/17 04:45 MCH 31.0 pg (27.0-31.0) 08/24/17 04:45 MCHC Differential 33.4 pg (28.0-36.0) 08/24/17 04:45 RDW 12.8 % (11.5-20.0) 08/24/17 04:45 Plt Count 241 Th/cmm (150-400) 08/24/17 04:45 MPV 8.7 fl 08/24/17 04:45 Neutrophils % 58.7 % (40.0-80.0) 08/24/17 04:45 Lymphocytes % 25.8 % (20.0-50.0) 08/24/17 04:45 Monocytes % 8.7 % (2.0-10.0) 08/24/17 04:45 Eosinophils % 6.5 % (0.0-5.0) H 08/24/17 04:45 Basophils % 0.3 % (0.0-2.0) 08/24/17 04:45 PT 10.4 SECONDS (9.5-11.5) 08/20/17 01:33 INR 1.00 (0.5-1.4) 08/20/17 01:33 PTT (Actin FS) 27.4 SECONDS (26.0-38.0) 08/20/17 01:33 Sodium 132 mEq/L (136-145) L 08/24/17 04:45 Potassium 3.7 mEq/L (3.5-5.1) 08/24/17 04:45 Chloride 102 mEq/L (98-107) 08/24/17 04:45 Carbon Dioxide 18.9 mEq/L (21.0-31.0) L 08/24/17 04:45 Anion Gap 14.8 (7.0-16.0) 08/24/17 04:45 BUN 11 mg/dL (7-25) 08/24/17 04:45 Creatinine 0.6 mg/dL (0.6-1.2) 08/24/17 04:45 Est GFR ( Amer) TNP 08/24/17 04:45 Est GFR (Non-Af Amer) TNP 08/24/17 04:45 BUN/Creatinine Ratio 18.3 08/24/17 04:45 Glucose 82 mg/dL (70-105) 08/24/17 04:45 Whole Bld Lactic Acid 0.54 mmol/L (0.60-1.99) L 08/20/17 01:58 Calcium 8.9 mg/dL (8.6-10.3) 08/24/17 04:45 Magnesium 2.0 mg/dL (1.9-2.7) 08/23/17 08:01 Total Bilirubin 0.6 mg/dL (0.3-1.0) 08/24/17 04:45 AST 81 U/L (13-39) H 08/24/17 04:45 ALT 59 U/L (7-52) H 08/24/17 04:45 Alkaline Phosphatase 260 U/L (34-104) H 08/24/17 04:45 Creatine Kinase 13 U/L (30-223) L 08/20/17 01:58 Troponin I 0.01 ng/mL (0.01-0.05) 08/20/17 01:58 B-Natriuretic Peptide 27.0 pg/mL (5.0-100.0) 08/20/17 01:58 Total Protein 6.6 gm/dL (6.0-8.3) 08/24/17 04:45 Albumin 3.2 gm/dL (3.7-5.3) L 08/24/17 04:45 Globulin 3.4 gm/dL 08/24/17 04:45 Albumin/Globulin Ratio 0.9 (1.0-1.8) L 08/24/17 04:45 Triglycerides 144 mg/dL (<150) 08/20/17 01:58 Cholesterol 124 mg/dL (<200) 08/20/17 01:58 LDL Cholesterol Direct 69 mg/dL (75-193) L 08/20/17 01:58 HDL Cholesterol 24 mg/dL (23-92) 08/20/17 01:58 Lipase 43 U/L (11-82) 08/22/17 05:28 Urine Source MIDSTREAM 08/22/17 17:30 Urine Color YELLOW 08/22/17 17:30 Urine Clarity HAZY (CLEAR) 08/22/17 17:30 Urine pH 6.0 (4.6 - 8.0) 08/22/17 17:30 Ur Specific [place] 1.020 (1.005-1.030) 08/22/17 17:30 Urine Protein TRACE mg/dL (NEGATIVE) 08/22/17 17:30 Urine Glucose (UA) NEGATIVE mg/dL (NEGATIVE) 08/22/17 17:30 Urine Ketones >=80 mg/dL (NEGATIVE) H 08/22/17 17:30 Urine Blood NEGATIVE (NEGATIVE) 08/22/17 17:30 Urine Nitrate NEGATIVE (NEGATIVE) 08/22/17 17:30 Urine Bilirubin NEGATIVE (NEGATIVE) 08/22/17 17:30 Urine Urobilinogen 0.2 E.U./dL (0.2 - 1.0) 08/22/17 17:30 Ur Leukocyte Esterase TRACE (NEGATIVE) H 08/22/17 17:30 Urine RBC 0-2 /hpf (0-5) 08/22/17 17:30 Urine WBC 2-5 /hpf (0-5) 08/22/17 17:30 Ur Epithelial Cells FEW /lpf (FEW) 08/22/17 17:30 Calcium Oxalate Crystal MODERATE /hpf 08/22/17 17:30 Urine Bacteria FEW /hpf (NONE SEEN) 08/22/17 17:30 Hyaline Casts 0-2 /lpf (0-2) H 08/22/17 17:30 - Physical Exam Vitals and I&O: Vital Signs Temp 97.4 F 08/24/17 04:05 Pulse 76 08/24/17 04:05 Resp 18 08/24/17 04:05 BP 127/61 08/24/17 04:05 Pulse Ox 97 08/24/17 04:05 Intake & Output 08/23/17 08/24/17 08/24/17 18:59 06:59 18:59 Intake Total 50 300 Balance 50 300 Weight (lbs) 50.349 kg Intake: Intake, IV Amount 50 100 Piperacillin Sodium/ 50 100 Tazobact 3.375 gm In Sodium Chloride 0.9% 50 ml @ 100 mls/hr IV Q6HR [facility] Rx#:[id number] Oral 200 Other: # Voids 2 # Bowel Movements 2 Active Medications: Current Medications Acetaminophen (Tylenol) 650 mg PO BID [facility] Stop: 10/19/17 08:59 Last Admin: 08/23/17 17:11 Dose: Not Given Amlodipine Besylate (Norvasc) 5 mg PO DAILY [facility] Stop: 10/19/17 08:59 Last Admin: 08/23/17 08:27 Dose: 5 mg Ascorbic Acid (Vitamin C) 500 mg PO DAILY [facility] Stop: 10/19/17 08:59 Last Admin: 08/23/17 08:29 Dose: 500 mg Diphenoxylate HCl/Atropine (Lomotil) 1 tab PO BID PRN PRN Reason: Diarrhea Stop: 10/22/17 09:02 Last Admin: 08/23/17 13:22 Dose: 1 tab Docusate Sodium (Colace) 100 mg PO DAILY [facility] Stop: 10/19/17 08:59 Last Admin: 08/23/17 08:27 Dose: Not Given Enoxaparin Sodium (Lovenox) 40 mg SUBQ Q24H [facility] Stop: 10/20/17 17:59 Last Admin: 08/23/17 17:11 Dose: 40 mg Folic Acid (Folate) 1 mg PO DAILY [facility] Stop: 10/19/17 08:59 Last Admin: 08/23/17 08:26 Dose: 1 mg Piperacillin Sod/Tazobactam (Sod 3.375 gm/ Sodium Chloride) 50 mls @ 100 mls/ hr IV Q6HR [facility] Stop: 10/19/17 17:59 Last Admin: 08/24/17 06:06 Dose: 100 mls/hr Lactobacillus Rhamnosus (Culturelle) 1 each PO DAILY [facility] Stop: 10/21/17 08:59 Last Admin: 08/23/17 08:29 Dose: 1 each Magnesium Hydroxide (Milk Of Magnesia) 30 ml PO HS PRN PRN Reason: Constipation Stop: 10/19/17 07:16 Miscellaneous (Probiotic Screen) 1 ea [facility] PRN PRN PRN Reason: PROTOCOL Stop: 10/20/17 13:55 Ondansetron HCl (Zofran) 4 mg IV Q6H PRN PRN Reason: Nausea / Vomiting Stop: 10/20/17 10:26 Last Admin: 08/21/17 13:03 Dose: 4 mg Pantoprazole Sodium (Protonix) 40 mg IVP DAILY [facility] Stop: 10/20/17 11:59 Last Admin: 08/23/17 08:30 Dose: 40 mg Vitamin D (Vitamin D) 800 iu PO DAILY [facility] Stop: 10/19/17 08:59 Last Admin: 08/23/17 08:29 Dose: 800 iu Zinc Sulfate (Zinc Sulfate) 220 mg PO DAILY [facility] Stop: 10/19/17 08:59 Last Admin: 08/23/17 08:29 Dose: 220 mg General: Alert, Oriented x3, No acute distress HEENT: Atraumatic, PERRLA, EOMI Neck: Supple Cardiovascular: Regular rate, Normal S1, Normal S2 Abdomen: Bowel sounds Extremities: no Clubbing, no Cyanosis, no Edema Skin: Other (presence of drainage to the surgical site. ) Assessment/Plan - Assessment Assessment: abdominal wall cellulitis Wound dehiscence. R/o entero-cutaneous fistula abdominal pain H/o Colon CA s/p partial colectomy ( on 08/01/2017). diverticulitis type 2 DM HTN history of colon polyps distended gallbladder with possible bile sludge noted on CT Abd Rectal cancer s/p low anterior resection -- pathology shows no residual malignancy malnutrition/albumin 2.9 - Plan Plan: wound consult ID consult Hem/onc consult general surgery consult CBC,CMP tomorrow IV Zosyn Abdominal US this AM. nutritional consult
[2017-08-24] MEDS: Lactobacillus Rhamnosus 10 Billion CFU Capsule PO SCH (09:14)
[2017-08-24] MEDS: Multivitamin w/ Minerals Tab PO SCH (09:14)
--- NOTE | 2017-08-24 10:14 | General Progress Note ---
Subjective - Review of Systems Service Date: 08/24/17 Events since last encounter: occasional vomiting Subjective: No abd pain nausea Objective - Results Result Diagrams: 08/24/17 04:45 08/24/17 04:45 Recent Labs: Laboratory Last Values WBC 7.6 Th/cmm (4.8-10.8) D 08/24/17 04:45 RBC 4.26 Mil/cmm (3.80-5.20) 08/24/17 04:45 Hgb 13.2 gm/dL (12-16) 08/24/17 04:45 Hct 39.5 % (41.0-60) L 08/24/17 04:45 MCV 92.7 fl (81-100) 08/24/17 04:45 MCH 31.0 pg (27.0-31.0) 08/24/17 04:45 MCHC Differential 33.4 pg (28.0-36.0) 08/24/17 04:45 RDW 12.8 % (11.5-20.0) 08/24/17 04:45 Plt Count 241 Th/cmm (150-400) 08/24/17 04:45 MPV 8.7 fl 08/24/17 04:45 Neutrophils % 58.7 % (40.0-80.0) 08/24/17 04:45 Lymphocytes % 25.8 % (20.0-50.0) 08/24/17 04:45 Monocytes % 8.7 % (2.0-10.0) 08/24/17 04:45 Eosinophils % 6.5 % (0.0-5.0) H 08/24/17 04:45 Basophils % 0.3 % (0.0-2.0) 08/24/17 04:45 PT 10.4 SECONDS (9.5-11.5) 08/20/17 01:33 INR 1.00 (0.5-1.4) 08/20/17 01:33 PTT (Actin FS) 27.4 SECONDS (26.0-38.0) 08/20/17 01:33 Sodium 132 mEq/L (136-145) L 08/24/17 04:45 Potassium 3.7 mEq/L (3.5-5.1) 08/24/17 04:45 Chloride 102 mEq/L (98-107) 08/24/17 04:45 Carbon Dioxide 18.9 mEq/L (21.0-31.0) L 08/24/17 04:45 Anion Gap 14.8 (7.0-16.0) 08/24/17 04:45 BUN 11 mg/dL (7-25) 08/24/17 04:45 Creatinine 0.6 mg/dL (0.6-1.2) 08/24/17 04:45 Est GFR ( Amer) TNP 08/24/17 04:45 Est GFR (Non-Af Amer) TNP 08/24/17 04:45 BUN/Creatinine Ratio 18.3 08/24/17 04:45 Glucose 82 mg/dL (70-105) 08/24/17 04:45 Whole Bld Lactic Acid 0.54 mmol/L (0.60-1.99) L 08/20/17 01:58 Calcium 8.9 mg/dL (8.6-10.3) 08/24/17 04:45 Magnesium 2.0 mg/dL (1.9-2.7) 08/23/17 08:01 Total Bilirubin 0.6 mg/dL (0.3-1.0) 08/24/17 04:45 AST 81 U/L (13-39) H 08/24/17 04:45 ALT 59 U/L (7-52) H 08/24/17 04:45 Alkaline Phosphatase 260 U/L (34-104) H 08/24/17 04:45 Creatine Kinase 13 U/L (30-223) L 08/20/17 01:58 Troponin I 0.01 ng/mL (0.01-0.05) 08/20/17 01:58 B-Natriuretic Peptide 27.0 pg/mL (5.0-100.0) 08/20/17 01:58 Total Protein 6.6 gm/dL (6.0-8.3) 08/24/17 04:45 Albumin 3.2 gm/dL (3.7-5.3) L 08/24/17 04:45 Globulin 3.4 gm/dL 08/24/17 04:45 Albumin/Globulin Ratio 0.9 (1.0-1.8) L 08/24/17 04:45 Triglycerides 144 mg/dL (<150) 08/20/17 01:58 Cholesterol 124 mg/dL (<200) 08/20/17 01:58 LDL Cholesterol Direct 69 mg/dL (75-193) L 08/20/17 01:58 HDL Cholesterol 24 mg/dL (23-92) 08/20/17 01:58 Lipase 43 U/L (11-82) 08/22/17 05:28 Urine Source MIDSTREAM 08/22/17 17:30 Urine Color YELLOW 08/22/17 17:30 Urine Clarity HAZY (CLEAR) 08/22/17 17:30 Urine pH 6.0 (4.6 - 8.0) 08/22/17 17:30 Ur Specific [place] 1.020 (1.005-1.030) 08/22/17 17:30 Urine Protein TRACE mg/dL (NEGATIVE) 08/22/17 17:30 Urine Glucose (UA) NEGATIVE mg/dL (NEGATIVE) 08/22/17 17:30 Urine Ketones >=80 mg/dL (NEGATIVE) H 08/22/17 17:30 Urine Blood NEGATIVE (NEGATIVE) 08/22/17 17:30 Urine Nitrate NEGATIVE (NEGATIVE) 08/22/17 17:30 Urine Bilirubin NEGATIVE (NEGATIVE) 08/22/17 17:30 Urine Urobilinogen 0.2 E.U./dL (0.2 - 1.0) 08/22/17 17:30 Ur Leukocyte Esterase TRACE (NEGATIVE) H 08/22/17 17:30 Urine RBC 0-2 /hpf (0-5) 08/22/17 17:30 Urine WBC 2-5 /hpf (0-5) 08/22/17 17:30 Ur Epithelial Cells FEW /lpf (FEW) 08/22/17 17:30 Calcium Oxalate Crystal MODERATE /hpf 08/22/17 17:30 Urine Bacteria FEW /hpf (NONE SEEN) 08/22/17 17:30 Hyaline Casts 0-2 /lpf (0-2) H 08/22/17 17:30 - Physical Exam Vitals and I&O: Vital Signs Temp 97.4 F 08/24/17 04:05 Pulse 73 08/24/17 09:13 Resp 18 08/24/17 04:05 BP 138/61 08/24/17 09:13 Pulse Ox 97 08/24/17 04:05 Intake & Output 08/23/17 08/24/17 08/24/17 18:59 06:59 18:59 Intake Total 50 300 Balance 50 300 Weight (lbs) 50.349 kg Intake: Intake, IV Amount 50 100 Piperacillin Sodium/ 50 100 Tazobact 3.375 gm In Sodium Chloride 0.9% 50 ml @ 100 mls/hr IV Q6HR [facility] Rx#:[id number] Oral 200 Other: # Voids 2 # Bowel Movements 2 Active Medications: Current Medications Acetaminophen (Tylenol) 650 mg PO BID [facility] Stop: 10/19/17 08:59 Last Admin: 08/24/17 09:13 Dose: Not Given Amlodipine Besylate (Norvasc) 5 mg PO DAILY [facility] Stop: 10/19/17 08:59 Last Admin: 08/24/17 09:13 Dose: 5 mg Ascorbic Acid (Vitamin C) 500 mg PO DAILY [facility] Stop: 10/19/17 08:59 Last Admin: 08/24/17 09:14 Dose: 500 mg Diphenoxylate HCl/Atropine (Lomotil) 1 tab PO BID PRN PRN Reason: Diarrhea Stop: 10/22/17 09:02 Last Admin: 08/23/17 13:22 Dose: 1 tab Docusate Sodium (Colace) 100 mg PO DAILY [facility] Stop: 10/19/17 08:59 Last Admin: 08/24/17 09:15 Dose: Not Given Enoxaparin Sodium (Lovenox) 40 mg SUBQ Q24H [facility] Stop: 10/20/17 17:59 Last Admin: 08/23/17 17:11 Dose: 40 mg Folic Acid (Folate) 1 mg PO DAILY [facility] Stop: 10/19/17 08:59 Last Admin: 08/24/17 09:13 Dose: 1 mg Piperacillin Sod/Tazobactam (Sod 3.375 gm/ Sodium Chloride) 50 mls @ 100 mls/ hr IV Q6HR [facility] Stop: 10/19/17 17:59 Last Admin: 08/24/17 06:06 Dose: 100 mls/hr Lactobacillus Rhamnosus (Culturelle) 1 each PO DAILY [facility] Stop: 10/21/17 08:59 Last Admin: 08/24/17 09:14 Dose: 1 each Magnesium Hydroxide (Milk Of Magnesia) 30 ml PO HS PRN PRN Reason: Constipation Stop: 10/19/17 07:16 Miscellaneous (Probiotic Screen) 1 ea [facility] PRN PRN PRN Reason: PROTOCOL Stop: 10/20/17 13:55 Ondansetron HCl (Zofran) 4 mg IV Q6H PRN PRN Reason: Nausea / Vomiting Stop: 10/20/17 10:26 Last Admin: 08/21/17 13:03 Dose: 4 mg Pantoprazole Sodium (Protonix) 40 mg IVP DAILY [facility] Stop: 10/20/17 11:59 Last Admin: 08/24/17 09:15 Dose: 40 mg Vitamin D (Vitamin D) 800 iu PO DAILY [facility] Stop: 10/19/17 08:59 Last Admin: 08/24/17 09:13 Dose: 800 iu Zinc Sulfate (Zinc Sulfate) 220 mg PO DAILY [facility] Stop: 10/19/17 08:59 Last Admin: 08/24/17 09:14 Dose: 220 mg Physical Exam: yousif in place minimal oozing no bleeding General: Alert, Oriented x3, No acute distress HEENT: Atraumatic, PERRLA, EOMI Neck: Supple Cardiovascular: Regular rate, Normal S1, Normal S2 Abdomen: Bowel sounds Extremities: no Clubbing, no Cyanosis, no Edema Skin: Other (presence of drainage to the surgical site. ) Assessment/Plan - Assessment Assessment: * Rectal cancer s/p low anterior resection * abd wound infection. * pathology shows no residual malignancy continue lovenx proph
--- NOTE | 2017-08-24 11:52 | Infectious Disease Prog Note ---
Infectious Disease Subjective - Review of Systems Service Date: 08/24/17 Subjective: There is no new change, there is no fever. Infectious Disease Objective - Results Result Diagrams: 08/24/17 04:45 08/24/17 04:45 Recent Labs: Laboratory Last Values WBC 7.6 Th/cmm (4.8-10.8) D 08/24/17 04:45 RBC 4.26 Mil/cmm (3.80-5.20) 08/24/17 04:45 Hgb 13.2 gm/dL (12-16) 08/24/17 04:45 Hct 39.5 % (41.0-60) L 08/24/17 04:45 MCV 92.7 fl (81-100) 08/24/17 04:45 MCH 31.0 pg (27.0-31.0) 08/24/17 04:45 MCHC Differential 33.4 pg (28.0-36.0) 08/24/17 04:45 RDW 12.8 % (11.5-20.0) 08/24/17 04:45 Plt Count 241 Th/cmm (150-400) 08/24/17 04:45 MPV 8.7 fl 08/24/17 04:45 Neutrophils % 58.7 % (40.0-80.0) 08/24/17 04:45 Lymphocytes % 25.8 % (20.0-50.0) 08/24/17 04:45 Monocytes % 8.7 % (2.0-10.0) 08/24/17 04:45 Eosinophils % 6.5 % (0.0-5.0) H 08/24/17 04:45 Basophils % 0.3 % (0.0-2.0) 08/24/17 04:45 PT 10.4 SECONDS (9.5-11.5) 08/20/17 01:33 INR 1.00 (0.5-1.4) 08/20/17 01:33 PTT (Actin FS) 27.4 SECONDS (26.0-38.0) 08/20/17 01:33 Sodium 132 mEq/L (136-145) L 08/24/17 04:45 Potassium 3.7 mEq/L (3.5-5.1) 08/24/17 04:45 Chloride 102 mEq/L (98-107) 08/24/17 04:45 Carbon Dioxide 18.9 mEq/L (21.0-31.0) L 08/24/17 04:45 Anion Gap 14.8 (7.0-16.0) 08/24/17 04:45 BUN 11 mg/dL (7-25) 08/24/17 04:45 Creatinine 0.6 mg/dL (0.6-1.2) 08/24/17 04:45 Est GFR ( Amer) TNP 08/24/17 04:45 Est GFR (Non-Af Amer) TNP 08/24/17 04:45 BUN/Creatinine Ratio 18.3 08/24/17 04:45 Glucose 82 mg/dL (70-105) 08/24/17 04:45 Whole Bld Lactic Acid 0.54 mmol/L (0.60-1.99) L 08/20/17 01:58 Calcium 8.9 mg/dL (8.6-10.3) 08/24/17 04:45 Magnesium 2.0 mg/dL (1.9-2.7) 08/23/17 08:01 Total Bilirubin 0.6 mg/dL (0.3-1.0) 08/24/17 04:45 AST 81 U/L (13-39) H 08/24/17 04:45 ALT 59 U/L (7-52) H 08/24/17 04:45 Alkaline Phosphatase 260 U/L (34-104) H 08/24/17 04:45 Creatine Kinase 13 U/L (30-223) L 08/20/17 01:58 Troponin I 0.01 ng/mL (0.01-0.05) 08/20/17 01:58 B-Natriuretic Peptide 27.0 pg/mL (5.0-100.0) 08/20/17 01:58 Total Protein 6.6 gm/dL (6.0-8.3) 08/24/17 04:45 Albumin 3.2 gm/dL (3.7-5.3) L 08/24/17 04:45 Globulin 3.4 gm/dL 08/24/17 04:45 Albumin/Globulin Ratio 0.9 (1.0-1.8) L 08/24/17 04:45 Triglycerides 144 mg/dL (<150) 08/20/17 01:58 Cholesterol 124 mg/dL (<200) 08/20/17 01:58 LDL Cholesterol Direct 69 mg/dL (75-193) L 08/20/17 01:58 HDL Cholesterol 24 mg/dL (23-92) 08/20/17 01:58 Lipase 43 U/L (11-82) 08/22/17 05:28 Urine Source MIDSTREAM 08/22/17 17:30 Urine Color YELLOW 08/22/17 17:30 Urine Clarity HAZY (CLEAR) 08/22/17 17:30 Urine pH 6.0 (4.6 - 8.0) 08/22/17 17:30 Ur Specific [place] 1.020 (1.005-1.030) 08/22/17 17:30 Urine Protein TRACE mg/dL (NEGATIVE) 08/22/17 17:30 Urine Glucose (UA) NEGATIVE mg/dL (NEGATIVE) 08/22/17 17:30 Urine Ketones >=80 mg/dL (NEGATIVE) H 08/22/17 17:30 Urine Blood NEGATIVE (NEGATIVE) 08/22/17 17:30 Urine Nitrate NEGATIVE (NEGATIVE) 08/22/17 17:30 Urine Bilirubin NEGATIVE (NEGATIVE) 08/22/17 17:30 Urine Urobilinogen 0.2 E.U./dL (0.2 - 1.0) 08/22/17 17:30 Ur Leukocyte Esterase TRACE (NEGATIVE) H 08/22/17 17:30 Urine RBC 0-2 /hpf (0-5) 08/22/17 17:30 Urine WBC 2-5 /hpf (0-5) 08/22/17 17:30 Ur Epithelial Cells FEW /lpf (FEW) 08/22/17 17:30 Calcium Oxalate Crystal MODERATE /hpf 08/22/17 17:30 Urine Bacteria FEW /hpf (NONE SEEN) 08/22/17 17:30 Hyaline Casts 0-2 /lpf (0-2) H 08/22/17 17:30 - Physical Exam Vitals and I&O: Vital Signs Temp 97.5 F 08/24/17 08:00 Pulse 73 08/24/17 09:13 Resp 20 08/24/17 11:00 BP 138/61 08/24/17 09:13 Pulse Ox 93 08/24/17 08:00 Intake & Output 08/23/17 08/24/17 08/24/17 18:59 06:59 18:59 Intake Total 50 300 Balance 50 300 Weight (lbs) 50.349 kg Intake: Intake, IV Amount 50 100 Piperacillin Sodium/ 50 100 Tazobact 3.375 gm In Sodium Chloride 0.9% 50 ml @ 100 mls/hr IV Q6HR [facility] Rx#:[id number] Oral 200 Other: # Voids 2 # Bowel Movements 2 Active Medications: Current Medications Acetaminophen (Tylenol) 650 mg PO BID [facility] Stop: 10/19/17 08:59 Last Admin: 08/24/17 09:13 Dose: Not Given Amlodipine Besylate (Norvasc) 5 mg PO DAILY [facility] Stop: 10/19/17 08:59 Last Admin: 08/24/17 09:13 Dose: 5 mg Ascorbic Acid (Vitamin C) 500 mg PO DAILY [facility] Stop: 10/19/17 08:59 Last Admin: 08/24/17 09:14 Dose: 500 mg Diphenoxylate HCl/Atropine (Lomotil) 1 tab PO BID PRN PRN Reason: Diarrhea Stop: 10/22/17 09:02 Last Admin: 08/23/17 13:22 Dose: 1 tab Docusate Sodium (Colace) 100 mg PO DAILY [facility] Stop: 10/19/17 08:59 Last Admin: 08/24/17 09:15 Dose: Not Given Enoxaparin Sodium (Lovenox) 40 mg SUBQ Q24H [facility] Stop: 10/20/17 17:59 Last Admin: 08/23/17 17:11 Dose: 40 mg Folic Acid (Folate) 1 mg PO DAILY [facility] Stop: 10/19/17 08:59 Last Admin: 08/24/17 09:13 Dose: 1 mg Piperacillin Sod/Tazobactam (Sod 3.375 gm/ Sodium Chloride) 50 mls @ 100 mls/ hr IV Q6HR [facility] Stop: 10/19/17 17:59 Last Admin: 08/24/17 06:06 Dose: 100 mls/hr Lactobacillus Rhamnosus (Culturelle) 1 each PO DAILY [facility] Stop: 10/21/17 08:59 Last Admin: 08/24/17 09:14 Dose: 1 each Magnesium Hydroxide (Milk Of Magnesia) 30 ml PO HS PRN PRN Reason: Constipation Stop: 10/19/17 07:16 Miscellaneous (Probiotic Screen) 1 ea [facility] PRN PRN PRN Reason: PROTOCOL Stop: 10/20/17 13:55 Ondansetron HCl (Zofran) 4 mg IV Q6H PRN PRN Reason: Nausea / Vomiting Stop: 10/20/17 10:26 Last Admin: 08/24/17 10:18 Dose: 4 mg Pantoprazole Sodium (Protonix) 40 mg IVP DAILY [facility] Stop: 10/20/17 11:59 Last Admin: 08/24/17 09:15 Dose: 40 mg Vitamin D (Vitamin D) 800 iu PO DAILY [facility] Stop: 10/19/17 08:59 Last Admin: 08/24/17 09:13 Dose: 800 iu Zinc Sulfate (Zinc Sulfate) 220 mg PO DAILY [facility] Stop: 10/19/17 08:59 Last Admin: 08/24/17 09:14 Dose: 220 mg General: no acute distress, well developed, well nourished HEENT: atraumatic, normocephalic, PERRLA Neck: supple, no thyromegaly Cardiovascular: S1S2, regular Lungs: clear to auscultation bilaterally, clear to percussion Abdomen: soft, other (sugical wound with steristrips. no discharge or erythema.) , no tender, no distended, no rebound Extremities: no cyanosis, no clubbing Neurological: awake, alert, oriented Skin: intact Infectious Disease Assmt/Plan - Assessment Assessment: 1. Wound dehiscence. 2. s/p partial colectomy ( on 08/01/2017). 3. abdominal wall cellulitis. 4. DM2. 5. HTN. 6. H/o Colon CA. - Plan Plan: May dc patient to SNF on augmentin po for 7 days (875mg po bid) Wound care.
[2017-08-24] MEDS: Diphenoxylate/Atropine 2.5mg Tab PO PRN (12:24)
--- NOTE | 2017-08-24 16:10 | History & Physical ---
ADMIT DATE: 08/24/2017 CONTINUING DICTATION The patient underwent CT scan of the abdomen, which was done without IV contrast. Changes include 3 mm nonobstructive right renal stone, colonic diverticulosis is noted, surgical changes in the anterior abdomen from previous recent surgery, mildly distended gallbladder with possible sludge and 2 mm right renal stone. The patient was followed until the operative report came in from [facility] and this in fact shows the procedure that was done on this patient, which was rather extensive, but was converted to open to complete the colon resection. Examination shows a healing incision at the midline and no evidence of infection. We will follow with you. JOB# [id number]
--- NOTE | 2017-08-24 16:15 | History & Physical ---
ADMIT DATE: 08/20/2017 REFERRING PHYSICIAN: Dr. Wadsworth. REASON FOR CONSULTATION: Postoperative status. Thank you for referring this patient to me. HISTORY OF PRESENT ILLNESS: This is an 82-year-old female admitted following low anterior resection? done at the [facility] about 2 weeks ago. This possibly was malignant. PAST MEDICAL HISTORY: Includes coronary artery disease, hypertension, hyperlipidemia. On this admission, the laboratory studies show WBC to be normal, hemoglobin also normal. The liver function tests are also normal. CT scan of the abdomen was done and this did not show any abscess. DICTATION ENDS HERE. JOB# [id number]
--- NOTE | 2017-08-25 07:13 | Discharge Summary ---
DATE OF DISCHARGE: 08/24/2017 PRELIMINARY DIAGNOSES: 1. Wound dehiscence. 2. Cellulitis. 3. Abdominal pain. 4. Status post partial bowel resection. 5. History of malignant neoplasm of the colon. 6. Diverticulitis. 7. Cholelithiasis. 8. Diabetes mellitus. 9. Hypertension. 10. History of colonic polyps. 11. Coronary artery disease. 12. Hypertension. 13. Hyperlipidemia. 14. Gastroesophageal reflux disease with history of peptic ulcer disease. DISCHARGE DIAGNOSES: 1. Wound dehiscence. 2. Cellulitis. 3. Abdominal pain. 4. Status post partial bowel resection. 5. History of malignant neoplasm of the colon. 6. Diverticulitis. 7. Cholelithiasis. 8. Diabetes mellitus. 9. Hypertension. 10. History of colonic polyps. 11. Coronary artery disease. 12. Hypertension. 13. Hyperlipidemia. 14. Gastroesophageal reflux disease with history of peptic ulcer disease. HISTORY OF PRESENT ILLNESS: This is an 82-year-old female who presents to [facility] ER for acute abdominal pain with a previous history of bowel obstruction at an outside facility. The patient has a history of neoplasm of the rectum. She presents to the ER with serosanguineous drainage from her surgical site noted at the long term. She was subsequently transferred here for further evaluation and treatment. She denies any nausea or vomiting. Denies any diarrhea or constipation. Denies any fever or chills or urinary symptoms. The patient does have a previous history of coronary artery disease, hypertension, hyperlipidemia, gastroesophageal reflux disease, and as noted neoplasm of the rectum. Her initial lab work done in the ER showed a white count of 12,000, hemoglobin of 12.9, hematocrit of 37.8, platelets 305. PT/INR was normal at 10 and INR 1. Sodium was low noted at 130, potassium 3.6, chloride 99, bicarbonate 23, BUN 12, creatinine 0.5, glucose was 111. AST was normal at 14, ALT normal at 20, troponin level was 0.01. BNP was normal at 27.0. The patient had a CT of her abdomen and pelvis for evaluation. Please see dictated report, she was subsequently admitted for further evaluation and treatment. HOSPITAL COURSE: The patient improved during her hospital stay, was seen by IDDr. Crawford. Please see dictated report as well as a consult with GI, Dr. Galvez. Please see dictated report. The patient was also seen by hematology-oncology, Dr. Turcios, see dictated report as well as General Surgery with Dr. Zepeda. Please see dictated report. The patient was subsequently discharged in stable condition, was given a course of antibiotics, was to be transferred back to the long term facility with same orders. JOB# [id number]
== END 2017-08-24 15:45 | disposition home or self-care (01) | DRG 862 ==
LOC: ER 01:18 → MSI 03:20
PROVIDERS: ADMIT Family Medicine; ATTEND Family Medicine
DX: T81.4XXA Infection following a procedure, initial encounter (principal); A41.9 Sepsis, unspecified organism; E44.0 Moderate protein-calorie malnutrition; T81.31XA Disruption of external operation (surgical) wound, not elsewhere classified, initial encounter; K57.92 Diverticulitis of intestine, part unspecified, without perforation or abscess without bleeding; E87.1 Hypo-osmolality and hyponatremia; L03.311 Cellulitis of abdominal wall; E11.9 Type 2 diabetes mellitus without complications; I10 Essential (primary) hypertension; I25.10 Atherosclerotic heart disease of native coronary artery without angina pectoris; E78.5 Hyperlipidemia, unspecified; K21.9 Gastro-esophageal reflux disease without esophagitis; T50.995A Adverse effect of other drugs, medicaments and biological substances, initial encounter; E86.0 Dehydration; Y83.8 Other surgical procedures as the cause of abnormal reaction of the patient, or of later complication, without mention of misadventure at the time of the procedure; K27.9 Peptic ulcer, site unspecified, unspecified as acute or chronic, without hemorrhage or perforation; R19.7 Diarrhea, unspecified; N20.0 Calculus of kidney; K80.20 Calculus of gallbladder without cholecystitis without obstruction; Z87.11 Personal history of peptic ulcer disease; Z68.21 Body mass index [BMI] 21.0-21.9, adult; Y92.89 Other specified places as the place of occurrence of the external cause; Z85.048 Personal history of other malignant neoplasm of rectum, rectosigmoid junction, and anus; Z90.49 Acquired absence of other specified parts of digestive tract; Z83.3 Family history of diabetes mellitus; Z79.899 Other long term (current) drug therapy; Z82.49 Family history of ischemic heart disease and other diseases of the circulatory system
CPT/HCPCS: 36415-UA; 71010-TC; 71250-TC; 74000-TC; 76700-TC; 80048-TC; 80053-TC; 80061-TC; 81001-TC; 81003-TC; 82550-TC; 83605; 83690-TC; 83735-TC; 83880-TC; 84484-TC; 85025-TC; 85610-TC; 85730-TC; 87070-90; 93005; 94760; 96374; C9113; J0696; J1650; J2405; J2543; Z7610